=== PATIENT | male | born 1975 | race Caucasian/White ===

== ENCOUNTER → 2021-12-09 10:14 | Outpatient (BNVA) | payer SELFPAY | PROVIDERS: Visit Provider Physician Assistant Medical | DX: Z02.79 Encounter for issue of other medical certificate (principal) ==

== ENCOUNTER 2021-12-15 07:23 | Emergency (ER) | payer BC, SELFPAY ==
--- NOTE | ~2021-12-15 | XR_ITS ---
EXAMINATION: XR ELBOW, LEFT CLINICAL INFORMATION: Pain. Decreased range of motion. COMPARISON: None TECHNIQUE: AP, lateral, and oblique views of the left elbow. FINDINGS: Bone alignment is normal. No fracture or dislocation is seen. Joint spaces are normal. There is an elbow joint effusion. If there is history of trauma, occult fracture should be considered and follow-up x-ray in one week would be recommended. XR/XR elbow LT 2V IMPRESSION: Large elbow joint effusion. If there is history of trauma, occult fracture should be considered and follow-up x-ray in one week would be recommended.
[2021-12-15 07:25] VITALS: BP 147/101; PULSE 92; RESP 16; O2SAT 100; BMI 25.8
--- NOTE | 2021-12-15 07:41 | ECG_ITS ---
Test Reason : chest / arm pain Blood Pressure : / mmHG Vent. Rate : 077 BPM Atrial Rate : 077 BPM P-R Int : 154 ms QRS Dur : 082 ms QT Int : 382 ms P-R-T Axes : 045 -05 027 degrees QTc Int : 432 ms Normal sinus rhythm Normal ECG When compared with ECG of 02-DEC-2014 05:40, No significant change was found Referred By: June Mcmullen Electronically Signed By:RAINA RAHMAN MD
--- NOTE | 2021-12-15 07:43 | ED_ITS ---
HPI - Extremity Problem General Chief complaint: Extremity Injury, Upper <June McmullenYASMINE - Last Filed: 12/15/21 13:47> Stated complaint: chest/arm pain <June Gonzales YASMINE Mcmullen - Last Filed: 12/15/21 13:47> Time Seen by Provider: 12/15/21 07:32 <June Gonzales YASMINE Mcmullen - Last Filed: 12/15/21 13:47> Source: patient <June McmullenYASMINE - Last Filed: 12/15/21 13:47> Mode of arrival: ambulatory <June McmullenYASMINE - Last Filed: 12/15/21 13:47> Limitations: no limitations <June McmullenYASMINE - Last Filed: 12/15/21 13:47> History of Present Illness HPI Narrative: Patient is a 45-year-old male with a history of gout. He presents to the emergency department this morning for evaluation of left arm pain. He said he awoke this morning with severe pain to the left elbow which is made significantly worse with movement. He denies pain to the forearm, pain to the upper arm, or to the shoulder. He reports that his triceps muscle feels like Jell-O . The left arm in general feels heavy. Denies any known precipitating injury, recent trauma or fall, or past injury to the left arm. Denies having done any heavy lifting within the past few days. Denies associated fevers, chills, tingling, weakness of the left arm or hand. Denies any known tick bites. associated chest pain, palpitations, back pain, shoulder pain, shortness of breath, difficulty breathing. Denies family history of cardiovascular disease, or sudden at a young age. He is a cigarette smoker, endorses frequent alcohol consumption; had a couple drinks last night, and denies recreational usage. <Junerhonda Mcmullen CNP - Last Filed: 12/15/21 13:47> MD Complaint: extremity pain <June Ninoadalgisa Mcmullen CNP - Last Filed: 12/15/21 13:47> Onset (ago): hour(s) <Junerhonda Mcmullen CNP - Last Filed: 12/15/21 13:47> Pain Consistency: constant <June Mcmullen CNP - Last Filed: 12/15/21 13:47> Location: left and upper extremity <June Mcmullen CNP Last Filed: 12/15/21 13:47> Severity scale (1-10): 8 <June Mcmullen CNP Last Filed: 12/15/21 13:47> Quality: sharp <June Mcmullen CNP - Last Filed: 12/15/21 13:47> Radiation: none <June Mcmullen [facility] Last Filed: 12/15/21 13:47> Relieving factors: nothing <Juen Mcmullen CNP - Last Filed: 12/15/21 13:47> Exacerbating factors: range of motion <June Mcmullen CNP - Last Filed: 12/15/21 13:47> Associated symptoms: denies other symptoms <June Mcmullen CNP Last Filed: 12/15/21 13:47> Related Data Home medications: Previous Rx's Medication Instructions Recorded prednisone 20 mg tablet See Taper PO DAILY 10 Days #15 tab 12/15/21 <June Mcmullen CNP Last Filed: 12/15/21 13:47> Allergies/Adverse reactions: Allergies Allergy/AdvReac Type Severity Reaction Status Date / Time No Known Allergies Allergy Unverified 08/06/20 16:08 [No Known Allergies*] <June Mcmullen CNP Last Filed: 12/15/21 13:47> Review of Systems Verdana 4l Review of Systems: Verdana 4d Kelliher 4Bd Constitutional: Kelliher 4d No weight loss, fever, chills, weakness or fatigue. Kelliher 4Bd HEENT: Kelliher 4d No visual loss, blurred vision, double vision or yellow sclera. No hearing loss, sneezing, congestion, runny nose or sore throat. ArialArial 4Bd Skin: No rash or itching. Cardiovascular: No chest pain, chest pressure or chest discomfort. No palpitations or pedal edema. Respiratory: No shortness of breath, cough or sputum production. Gastrointestinal: No anorexia, nausea, vomiting or diarrhea. No abdominal pain or blood in stool. Genitourinary: No burning micturition. No urinary frequency or incontinence. Neurologic: No headache, dizziness, syncope, unilateral weakness, ataxia, numbne ss or tingling in the extremities. No change in bowel or bladder control. Musculoskeletal: + left arm pain as noted in HPI. No back pain, joint pain or stiffness. Hematologic: No bleeding or bruising. Lymphatics: No enlarged lymph nodes. Psychiatric: + feels anxious. No depression. Endocrine: No reports of sweating. No polyuria or polydipsia. <June Mcmullen CNP - Last Filed: 12/15/21 13:47> FOR[facility]LY [facility], [facility] Past Medical History Attestation statement: The following information was validated with the patient. <June Mcmullen CNP - Last Filed: 12/15/21 13:47> Source: old records reviewed <June Mcmullen CNP - Last Filed: 12/15/21 13:47> Medical History: Medical History Quadriceps tendon rupture <June Mcmullen CNP - Last Filed: 12/15/21 13:47> Social History Social History: Social History Alcohol intake: current Alcohol intake frequency: 0-2 drinks per day Patient Tobacco Use Status: Current everyday Tobacco user Smoked in Last 30 Days: Yes Use of substances other than those prescribed or required for medical reasons: No Advance Directives: No Advance Directives Information Provided: No <June Mcmullen CNP - Last Filed: 12/15/21 13:47> Physical Exam Verdana 4l Vital Signs: Verdana 4d Verdana 4d Vital Signs: Verdana 4d Verdana 4Bd Last Vital Signs Verdana 4d Airveyor Operator New 4d Airveyor Operator New 4d Temp 97.9 F 12/15/21 07:52 Airveyor Operator New 4d Pulse 93 12/15/21 07:52 Airveyor Operator New 4d Resp 16 12/15/21 08:35 BP 138/98 H 12/15/21 07:52 Pulse Ox 96 12/15/21 07:52 BMI result Body Mass Index 25.8 Vital signs have been reviewed and appeared to be correct. Blood pressure elevated initially 147/101, 136/84 on repeat.? Heart rate normal.? Respiration rate normal. Temperature normal.? Oxygen saturation normal. <June Mcmullen CNP - Last Filed: 12/15/21 13:47> Appearance: Alert.?Oriented to person, place and time. No acute distress.?Normal affect. Eyes: Pupils equal, round and reactive to light.? ENT: Pharynx normal.?? Neck: Normal inspection.? Neck supple.?? CVS: Heart sounds normal. Normal heart rate and rhythm.? Pulses normal.?? Respiratory: No respiratory distress.? Lung sounds clear to auscultation bilaterally?? Abdomen: Soft and non-tender. Normoactive bowel sounds. No pulsatile mass.?? Skin: Skin warm and dry.? Normal skin color.? Normal skin turgor.?? MSK: Full ROM to left shoulder while holding forearm for elbow stability, Full ROM to left wrist. Palpable tenderness to medial elbow. Limited ROM to left elbow due to pain, no erythema, or warmth, localized swelling, concerning for effusion, notable muscle spasming to left forearm add left bicep. Palpable 2+ radial pulse bilaterally. Extremities: No upper or lower extremity edema.? No calf ttp? Neuro: Bilateral upper extremity strangth 5/5, bilateral lower extremity strength 5/5. Moves all extremities spontaneously. Sensation intact bilaterally. No focal neuro deficits. <June Mcmullen CNP - Last Filed: 12/15/21 13:47> Course Course Course Narrative: Patient is a 45-year-old male being evaluated in the emergency department for left arm pain, particularly to the left elbow without known precipitating injury. Will obtain CBC, CMP, magnesium to exclude leukocytosis, electrolyte abnormality, abnormal renal function, abnormal hepatic function. We will obtain troponin, and EKG to evaluate for cardiac abnormalities. Will obtain x-ray of the left elbow to exclude fracture dislocation the low suspicion for this given no precipitating injury. Ordered Tylenol and ibuprofen for pain. Disposition pending results. <June Mcmullen CNP - Last Filed: 12/15/21 13:47> Reevaluation(s) Reevaluation #1: Left elbow x-ray reveals a large joint effusion, Uric acid elevated 9.3 suspect this to be related to acute gout flare. Discussed treatment including rest, hydration, purine restricted diet, glucocorticoid and follow-up with PCP. Troponin normal, EKG normal, no active chest pain or respiratory distress, no concern for acute coronary syndrome. Total bilirubin 1.5, AST 90, ALT 94, in addition to low RBC 4.14 and low platelet count 86. No active bleeding or concerns for spontaneuos/ unexplained bruising, denies blood in urine, bloody or dark stools. Given his abdomen is non-tender, has no complaints of nausea, vomiting, jaundice suspect this may be related to his alcohol consumption for which he should have follow-up outpatient with PCP for trending. Patient to be discharged home, reviewed reasons to return to the emergency department, patient agreeable with plan. <June Mcmullen CNP - Last Filed: 12/15/21 13:47> Time: 09:30 <June Mcmullen CNP - Last Filed: 12/15/21 13:47> MDM - Extremity (Nontraumatic) Medical Records Attestation: I reviewed the patient's medical records. <June Mcmullen CNP - Last Filed: 12/15/21 13:47> Lab Data Attestation: I reviewed the patient's lab results. <June Mcmullen CNP - Last Filed: 12/15/21 13:47> Result diagrams: : 12/15/21 08:43 12/15/21 08:43 <June Mcmullen CNP - Last Filed: 12/15/21 13:47> Labs: Lab Results 12/15/21 12/15/21 12/15/21 Range/Units 08:43 08:43 08:43 WBC 6.4 (4.8-10.8) X10*3/uL RBC 4.14 L (4.60-5.80) X10*6/uL Hgb 15.3 (14.0-18.0) g/dl Hct 42.1 (42.0-52.0) % MCV 101.7 H (80.0-98.0) fL MCH 37.0 H (27.0-33.0) pg MCHC 36.3 H (31.0-36.0) g/dl RDW 13.4 (11.0-16.0) % Plt Count 86 L (160-400) X10*3/uL MPV 8.7 L (9.4-12.4) fL Immature Gran % (Auto) 0.3 (0.0-0.4) % Neut % (Auto) 74.3 H (45-73) % Lymph % (Auto) 15.6 L (20-40) % [place] % (Auto) 9.0 (2-11) % Eos % (Auto) 0.6 (0-4) % Baso % (Auto) 0.2 (0-2) % Lymph # (Auto) 1.0 L (1.2-4.9) X10*3/uL [place] # (Auto) 0.6 (0.1-1.2) X10*3/uL Eos # (Auto) 0.0 (0.0-0.4) X10*3/uL Baso # (Auto) 0.0 (0.0-0.2) X10*3/uL Abs Immat Gran (auto) 0.02 (0.00-0.03) X10*3/uL Absolute Neuts (auto) 4.8 (2.0-8.3) x10*3/uL Absolute Nucleated RBC 0.000 (0.0-0.012) X10*3/uL Nucleated RBC % (auto) 0.0 (0.0-0.2) /100WBC ESR (0-15) MM/HR Sodium 140 (135-145) mmol/L Potassium 4.5 (3.3-5.1) mmol/L Chloride 105 (96-108) mmol/L Carbon Dioxide 25 (22-29) mmol/L Anion Gap 15 (12-20) BUN 7 L (9-16) mg/dL Creatinine 0.95 (0.5-1.4) mg/dL Estim Creat Clear Calc 103.5 Estimated GFR > 60 Random Glucose 93 (60-115) mg/dL Uric Acid 9.3 H (3.4-7.0) mg/dL Calcium 9.2 (8.4-10.2) mg/dL Magnesium 1.7 (1.6-2.6) mg/dL Total Bilirubin 1.5 H (0.0-1.0) mg/dL AST 90 H (5-37) U/L ALT 94 H (0-40) U/L Alkaline Phosphatase 72 (39-117) U/L Troponin I High Sens < 3.5 (<3.5-35.0) ng/L C-Reactive Protein 0.16 (< or = 0.50) mg/dL Total Protein 6.6 (6.5-8.0) g/dL Albumin 3.8 (3.5-5.0) g/dL 12/15/21 Range/Units 08:43 WBC (4.8-10.8) X10*3/uL RBC (4.60-5.80) X10*6/uL Hgb (14.0-18.0) g/dl Hct (42.0-52.0) % MCV (80.0-98.0) fL MCH (27.0-33.0) pg MCHC (31.0-36.0) g/dl RDW (11.0-16.0) % Plt Count (160-400) X10*3/uL MPV (9.4-12.4) fL Immature Gran % (Auto) (0.0-0.4) % Neut % (Auto) (45-73) % Lymph % (Auto) (20-40) % [place]ap[place] % (Auto) (2-11) % Eos % (Auto) (0-4) % Baso % (Auto) (0-2) % Lymph # (Auto) (1.2-4.9) X10*3/uL [place] # (Auto) (0.1-1.2) X10*3/uL Eos # (Auto) (0.0-0.4) X10*3/uL Baso # (Auto) (0.0-0.2) X10*3/uL Abs Immat Gran (auto) (0.00-0.03) X10*3/uL Absolute Neuts (auto) (2.0-8.3) x10*3/uL Absolute Nucleated RBC (0.0-0.012) X10*3/uL Nucleated RBC % (auto) (0.0-0.2) /100WBC ESR 4 (0-15) MM/HR Sodium (135-145) mmol/L Potassium (3.3-5.1) mmol/L Chloride (96-108) mmol/L Carbon Dioxide (22-29) mmol/L Anion Gap (12-20) BUN (9-16) mg/dL Creatinine (0.5-1.4) mg/dL Estim Creat Clear Calc Estimated GFR Random Glucose (60-115) mg/dL Uric Acid (3.4-7.0) mg/dL Calcium (8.4-10.2) mg/dL Magnesium (1.6-2.6) mg/dL Total Bilirubin (0.0-1.0) mg/dL AST (5-37) U/L ALT (0-40) U/L Alkaline Phosphatase (39-117) U/L Troponin I High Sens (<3.5-35.0) ng/L C-Reactive Protein (< or = 0.50) mg/dL Total Protein (6.5-8.0) g/dL Albumin (3.5-5.0) g/dL <June Mcmullen CNP - Last Filed: 12/15/21 13:47> Imaging Data left elbow XR: Attestation: I personally reviewed and interpreted this imaging study as follows: <June Mcmullen CNP - Last Filed: 12/15/21 13:47> Radiologist's impression: IMPRESSION: Large elbow joint effusion. If there is history of trauma, occult fracture should be considered and follow-up x-ray in one week would be recommended. <June Mcmullen CNP - Last Filed: 12/15/21 13:47> ECG Data Attestation EKG: I personally reviewed and interpreted this ECG as follows: <June Mcmullen CNP - Last Filed: 12/15/21 13:47> ECG interpretation date: 12/15/21 <June Mcmullen CNP - Last Filed: 12/15/21 13:47> ECG interpretation time: 08:47 <June Mcmullen CNP - Last Filed: 12/15/21 13:47> Prior ECG tracings: available for review <June Mcmullen CNP - Last Filed: 12/15/21 13:47> Interpretation: Rate: 77 Rhythm:? Normal sinus rhythm [place]:? Normal Normal P waves.? Normal ROHIT.?? Normal QRS complex.?? ST T wave :??No ST elevation, or T inversion qTC: 432 prior studies:?Nov 2014 The study has been interpreted contemporaneously by me. <June Mcmullen CNP - Last Filed: 12/15/21 13:47> Discharge Plan Discharge Clinical Impression: Effusion of elbow joint, left, Gout attack <June Mcmullen CNP - Last Filed: 12/15/21 13:47> Patient Disposition: Home, Self-Care <June Mcmullen CNP - Last Filed: 12/15/21 13:47> Instructions: Low Purine Diet (ED), Gout (ED) <June Mcmullen CNP - Last Filed: 12/15/21 13:47> Additional Instructions: You were evaluated in the emergency department for pain to your left elbow, your uric acid levels were elevated and your x-ray shows that there is an effusion in the joint. This is most consistent with gout flare up. Please take prednisone as prescribed, take medication with food to prevent stomach upset. Be sure to stay well hydrated avoid any excess red meat intake, seafood, and you should avoid alcohol including beer, and distilled liquor. In addition, your liver enzymes were mildly elevated, this may be in relation to alcohol consumption, should she developed abdominal pain, nausea, vomiting, yellowing of the skin or eyes you should be re-evaluated. Your platelet count and monique blood cell counts were also low. Please call to arrainge a new PCP for further follow- up on your labs. Please feel free to return to the emergency department for any new or worsening symptoms or concerns <June Mcmullen CNP - Last Filed: 12/15/21 13:47> Prescriptions: New prednisone 20 mg tablet See Taper mg PO DAILY 10 Days Qty: 15 0RF Taper: Prednisone 40 mg daily for 5 Days and 0 Hour 20 mg daily for 5 Days and 0 Hour <June Mcmullen CNP - Last Filed: 12/15/21 13:47> Interventions: ED Discharge Assessment Last Done: 12/15/21 10:07 <June Mcmullen CNP - Last Filed: 12/15/21 13:47> Discharge Date/Time: 12/15/21 10:07 <June Mcmullen, QUALITY ENG - Last Filed: 12/15/21 13:47>
[2021-12-15] MEDS: Acetaminophen 325 MG TABLET 975 MG PO (07:51)
[2021-12-15 07:52] VITALS: BP 138/98; PULSE 93; RESP 18; TEMP 36.6; O2SAT 96
[2021-12-15] MEDS: Ibuprofen 600 MG TABLET PO (07:52)
[2021-12-15 08:35] VITALS: RESP 16
[2021-12-15 08:47] LABS: MANUAL DIFF FLAG NO
[2021-12-15 08:48] LABS: Basophils Percent Auto 0.2 % (0-2); Eosinophils Percent Auto 0.6 % (0-4); Hematocrit 42.1 % (42.0-52.0); Hemoglobin 15.3 g/dl (14.0-18.0); Imm Gran Abs Auto 0.02 X10*3/uL (0.00-0.03); Imm Gran Pct Auto 0.3 % (0.0-0.4); Lymphocytes Percent Auto 15.6 % (20-40); Mean Corpuscular HGB Conc 36.3 g/dl (31.0-36.0); Mean Corpuscular Volume 101.7 fL (80.0-98.0); Monocytes Absolute Auto 0.6 X10*3/uL (0.1-1.2); Neutrophils Absolute Auto 4.8 x10*3/uL (2.0-8.3); Neutrophils Percent Auto 74.3 % (45-73); Red Blood Count 4.14 X10*6/uL (4.60-5.80); Red Cell Distribution Width 13.4 % (11.0-16.0); White Blood Count 6.4 X10*3/uL (4.8-10.8)
[2021-12-15 09:05] LABS: Alanine Aminotransferase 94 U/L (0-40); Albumin Level 3.8 g/dL (3.5-5.0); Alkaline Phosphatase 72 U/L (39-117); Anion Gap 15 (12-20); Aspartate Amino Transferase 90 U/L (5-37); Bilirubin Total 1.5 mg/dL (0.0-1.0); Blood Urea Nitrogen 7 mg/dL (9-16); C Reactive Protein 0.16 mg/dL (< or = 0.50); Calcium 9.2 mg/dL (8.4-10.2); Carbon Dioxide 25 mmol/L (22-29); Chloride 105 mmol/L (96-108); Creatinine Clr Calc Pharmacy 103.5; Estimated Glomerular Filt Rate > 60; Glucose Random 93 mg/dL (60-115); Magnesium 1.7 mg/dL (1.6-2.6); Potassium 4.5 mmol/L (3.3-5.1); Sodium 140 mmol/L (135-145); Total Protein 6.6 g/dL (6.5-8.0); Uric Acid 9.3 mg/dL (3.4-7.0)
[2021-12-15 09:07] LABS: Mean Platelet Volume 8.7 fL (9.4-12.4); Platelet Count 86 X10*3/uL (160-400)
[2021-12-15 09:11] LABS: Troponin-I High Sensitivity < 3.5 ng/L (<3.5-35.0)
[2021-12-15 09:34] LABS: Erythrocyte Sedimentation Rate 4 MM/HR (0-15)
== END 2021-12-15 10:07 | disposition home or self-care (01) ==
PROVIDERS: Nurse Practitioner Family; Emergency Provider Emergency Medicine; PCP Nurse Practitioner Family
DX: M25.422 Effusion, left elbow (principal); M10.9 Gout, unspecified; M79.602 Pain in left arm; F17.200 Nicotine dependence, unspecified, uncomplicated
CPT/HCPCS: 36415; 73070; 80053; 83735; 84484; 84550; 85025; 85652; 86140; 93005; 99283; 99284

== ENCOUNTER 2022-02-10 08:41 | Outpatient (REF) | payer BC, SELFPAY ==
[2022-02-10 09:08] LABS: MANUAL DIFF FLAG NO
[2022-02-10 10:01] LABS: Basophils Percent Auto 0.1 % (0-2); Eosinophils Percent Auto 0.4 % (0-4); Hematocrit 43.5 % (42.0-52.0); Hemoglobin 14.9 g/dl (14.0-18.0); Imm Gran Abs Auto 0.04 X10*3/uL (0.00-0.03); Imm Gran Pct Auto 0.5 % (0.0-0.4); Lymphocytes Absolute Auto 1.2 X10*3/uL (1.2-4.9); Lymphocytes Percent Auto 15.7 % (20-40); Mean Corpuscular HGB Conc 34.3 g/dl (31.0-36.0); Mean Corpuscular Hemoglobin 34.9 pg (27.0-33.0); Mean Corpuscular Volume 101.9 fL (80.0-98.0); Mean Platelet Volume 10.1 fL (9.4-12.4); Monocytes Absolute Auto 0.6 X10*3/uL (0.1-1.2); Neutrophils Absolute Auto 5.7 x10*3/uL (2.0-8.3); Neutrophils Percent Auto 75.3 % (45-73); Platelet Count 147 X10*3/uL (160-400); Red Blood Count 4.27 X10*6/uL (4.60-5.80); Red Cell Distribution Width 12.2 % (11.0-16.0); White Blood Count 7.5 X10*3/uL (4.8-10.8)
[2022-02-10 10:37] LABS: Alanine Aminotransferase 29 U/L (0-40); Albumin Level 4.6 g/dL (3.5-5.0); Alkaline Phosphatase 49 U/L (39-117); Anion Gap 15 (12-20); Aspartate Amino Transferase 17 U/L (5-37); Bilirubin Total 0.7 mg/dL (0.0-1.0); Blood Urea Nitrogen 22 mg/dL (9-16); Calcium 10.3 mg/dL (8.4-10.2); Carbon Dioxide 25 mmol/L (22-29); Chloride 105 mmol/L (96-108); Cholesterol 184 mg/dL; Estimated Glomerular Filt Rate > 60; Glucose Fasting 101 mg/dL (60-99); HDL Cholesterol 32 mg/dL; LDL Cholesterol Calculated 131 mg/dl; Potassium 4.9 mmol/L (3.3-5.1); Sodium 140 mmol/L (135-145); Total Protein 7.4 g/dL (6.5-8.0); Triglycerides 108 mg/dL
[2022-02-10 10:44] LABS: Estimated Average Glucose 91 mg/dL; Hemoglobin A1c % 4.8 %
[2022-02-10 11:05] LABS: Folate 9.5 ng/mL (> or = 4.0); Vitamin B12 232 pg/mL (200-900)
[2022-02-16 13:16] LABS: Vitamin D 25-OH, D2 <4 ng/mL; Vitamin D 25-OH, D3 21 ng/mL; Vitamin D 25-OH, Total 21 ng/mL (30-100)
== END 2022-02-10 08:42 | disposition home or self-care (01) ==
LOC: HO.LAB 08:41
PROVIDERS: PCP Nurse Practitioner Acute Care; Visit Provider Nurse Practitioner Acute Care
DX: I10 Essential (primary) hypertension (principal)
CPT/HCPCS: 36415; 80053; 80061; 82306; 82607; 82746; 83036; 84443; 85025

== ENCOUNTER 2022-05-09 08:20 | Emergency (ER) | payer BC, SELFPAY ==
--- NOTE | ~2022-05-09 | CT_ITS ---
EXAMINATION: CT ABDOMEN AND PELVIS WITHOUT CONTRAST CLINICAL INFORMATION: Right pelvic pain COMPARISON: None TECHNIQUE: Multidetector volumetric imaging was performed from the superior aspect of the liver through the pubic symphysis. Sagittal and coronal reformatted images were obtained on the technologist's workstation. This CT examination was performed using dose optimization techniques as appropriate, variously including the following: *Automated exposure control *Adjustment of mA and/or kV according to patient size (this includes techniques or standardized protocols for targeted exams where dose is matched to indication/reason for exam; i.e. extremities or head) *Use of iterative reconstruction technique DLP: 594 mGy-cm FINDINGS: LUNG BASES: The visualized lung bases are unremarkable. LIVER, GALLBLADDER, AND BILIARY TREE: The liver is normal in size, shape, and attenuation. No focal hepatic lesion or biliary ductal dilatation is present. The gallbladder is unremarkable with no evidence of radiopaque gallstones, gallbladder wall thickening, or obvious pericholecystic inflammatory changes. PANCREAS: Unremarkable. SPLEEN: The spleen is enlarged measuring 15.8 cm in craniocaudal dimension. ADRENAL GLANDS: Unremarkable. KIDNEYS AND URETERS: The kidneys are normal in size, shape, and attenuation. No hydronephrosis, hydroureter, or calculi seen. No perinephric stranding. BLADDER: The partially distended urinary bladder is unremarkable. GASTROINTESTINAL TRACT: No bowel obstruction. Normal appendix. A few scattered colonic diverticuli without diverticulitis. ABDOMINAL WALL: No significant hernia is appreciated. LYMPH NODES: No lymphadenopathy. VASCULAR: Minimal calcified plaque in the abdominal aorta. PELVIC VISCERA: The prostate and seminal vesicles are unremarkable. OSSEOUS STRUCTURES: There is chronic AVN of the right hip with areas of mild subchondral collapse. There is secondary osteoarthritis in the right hip. Left hip is normal.. Minimal retrolisthesis of L5 on S1. Mild degenerative disc disease at L5-S1. Mild spondylitic changes in the visualized spine. CT/CT abdomen pelvis wo con IMPRESSION: 1. There is chronic AVN of the right hip with areas of subchondral collapse. There is secondary osteoarthritis in the right hip. 2. Splenomegaly. 3. A few scattered colonic diverticuli without diverticulitis. 4. Minimal retrolisthesis of L5 on S1. Degenerative disc disease at L5-S1. Fleischner guidelines were followed.
--- NOTE | ~2022-05-09 | XR_ITS ---
EXAMINATION: XR HIP, RIGHT CLINICAL INFORMATION: Right hip pain for months. COMPARISON: CT scan of the abdomen and pelvis performed today TECHNIQUE: Two views of the right hip. FINDINGS: Mild deformity, sclerotic changes and subcortical cystic changes are seen medially in the right femoral head. Mild right acetabular periarticular sclerotic changes are seen. The left hip shows minimal degenerative changes superiorly. The bony pelvis is intact. The soft tissues are unremarkable. XR/XR hip RT w PEL1V IMPRESSION: Asymmetric right femoral head findings suggestive of avascular necrosis and associated degenerative changes. Minimal left hip degenerative joint changes are seen without evidence for avascular necrosis.
[2022-05-09 08:23] VITALS: BP 167/112; PULSE 123; RESP 18; TEMP 36.1; O2SAT 97; BMI 26.5
--- NOTE | 2022-05-09 08:33 | ED_ITS ---
HPI - Male Genitourinary General Chief complaint: General Medical Stated complaint: groin issues Time Seen by Provider: 05/09/22 08:26 Source: patient Mode of arrival: ambulatory Limitations: no limitations History of Present Illness HPI Narrative: 46-year-old male presents with 2 months of right-sided groin pain. Patient states he has more pain when he lifts or stands or walks. States the pain shoots into his hip and is intermittent. Patient started drinking again 2 weeks ago after being sober for 4 months and completing a rehab program. Patient had 1 episode of vomiting 5 days ago. Patient endorses anxiety, and states that he does not eat due to anxiety. States his last drink was last night, he drinks 2- 6 drinks a day of vodka. Patient states he has had orange urine that started last week, no dysuria, no vomiting or diarrhea, no abdominal pain, no abdominal surgeries. No chest pain, no shortness of breath. Patient does have a PCP and an appointment in June. Related Data Previous Rx's Medication Instructions Recorded clonidine HCl 0.1 mg tablet 0.1 mg PO BID #56 tabs 01/25/22 hydroxyzine HCl 50 mg tablet 50 mg PO TID PRN itching #84 tabs 01/25/22 cholecalciferol (vitamin D3) 50 50 mcg PO DAILY #30 caps 02/16/22 mcg (2,000 unit) capsule colchicine 0.6 mg tablet 0.6 mg PO DAILY PRN gout #30 tabs 03/09/22 prednisone 20 mg tablet See Taper PO DAILY 10 days #15 tabs 03/16/22 cephalexin 500 mg capsule 500 mg PO QID 7 days #28 caps 05/09/22 Allergies Allergy/AdvReac Type Severity Reaction Status Date / Time No Known Allergies Allergy Verified 03/22/22 15:03 [No Known Allergies*] Review of Systems Constitutional: Constitutional: Denies body ache(s), Denies chills, Denies fatigue, Denies fever(s), Denies headache(s), Denies malaise and Denies weakness Eyes: Eyes: Denies diplopia ENT: Denies vertigo, Denies dizziness, Denies otalgia, Denies headache(s), Denies mouth pain, Denies post nasal drip, Denies sinus pain, Denies sinus pressure, Denies sore throat and Denies throat swelling Cardiovascular: Cardiovascular: Denies chest pain, Denies syncope, Denies leg edema, Denies lightheadedness, Denies Loss of Consciousness, Denies palpitations and Denies dyspnea Respiratory: Respiratory: Denies chest congestion, Denies cough and Denies dyspnea Gastrointestinal: Gastrointestinal: Reports abdominal pain, Denies h ematochezia, Denies coffee ground emesis, Denies constipation, Denies diarrhea, Denies nausea, Reports vomiting and Denies hematemesis Genitourinary: Genitourinary: Denies hematuria, Denies dysuria, Denies flank pain, Denies painful ejaculations, Denies penile discharge, Denies scrotal swelling, Denies testicular mass, Denies testicular pain, Denies urinary frequency and Denies urinary incontinence Musculoskeletal: Musculoskeletal: Reports arthralgias (right hip) Neurologic: Denies confusion, Denies vertigo, Denies dizziness, Denies syncope, Denies headache(s) and Denies weakness Psychiatric: Psychiatric: Reports anxiety, Denies confusion and Denies depression Endocrine: Endocrine: Denies fatigue and Denies palpitations Allergic/Immunologic: Allergic/Immunologic: Denies throat swelling PMFSH Past Medical History Medical History Anxiety Encounter to establish care Gout Nicotine dependence Quadriceps tendon rupture Surgical History History of left knee surgery Family History Family History Other Substance use disorder Social History Social History Housing: House Alcohol intake: current Alcohol intake frequency: 3 or more drinks per day Alcohol type: hard liquor Patient Tobacco Use Status: Former Tobacco user e-Cigarette/Vaping Use: Never Used Second Hand Smoke Exposure: Yes Use of substances other than those prescribed or required for medical reasons: No Advance Directives: No Advance Directives Information Provided: No service: No Current occupational status: employed 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 Current occupational exposures/hazards: No Cognitive needs: No Hearing needs: No Vision needs: No Physical Exam Vital Signs: Vital Signs: Last Vital Signs Temp 98.7 F 05/09/22 10:35 Pulse 92 05/09/22 10:35 Resp 14 05/09/22 10:35 BP 131/90 H 05/09/22 10:35 Pulse Ox 98 05/09/22 10:35 O2 Del Method 05/09/22 10:35 BMI result Body Mass Index 26.5 Const: General: No confusion Nutritional Appearance: well nourished Orientation/consciousness: No confusion Limitations: no limitations HEENT: Head: Yes normal to inspection, Yes normocephalic and Yes atraumatic Ears: hearing grossly normal bilaterally, external ears normal, TM's normal bilaterally and EAC's normal General nose exam: Normal external nose present Face and sinus: Yes normal facial exam and Yes sinuses nontender Mouth: Normal oral and palatal mucosa present Throat: Yes posterior oropharynx normal Eyes: Conjunctivae: conjunctivae normal Pupils: Equal, round and reactive pupils present EOM: EOMs intact bilaterally Neck: Neck: Yes full ROM, Yes no lymphadenopathy and Yes supple Resp: Effort & Inspection: normal respiratory effort and able to speak in complete sentences Auscultation: clear to auscultation bilaterally, no crackles, no rales, no rhonchi and no wheezes Cardio: Rate: regular rate Rhythm: regular rhythm Heart sounds: S1 normal heart sound present and S2 normal heart sound present GI: Inspection: Yes normal to inspection Palpation (GI): Soft to palpation, nontender, no guarding and not rigid Percussion: Yes normal to percussion Auscultation: normal bowel sounds Skin: General skin exam: no rashes or lesions noted Neuro: General: No confusion Cranial nerves: Yes Equal, round and reactive pupils present Extrem: Right lower extremity: normal to inspection, full ROM, normal capillary refill, no joint enlargement and hip/thigh Details: normal to inspection and normal ROM; no tenderness, no swelling, no ecchymosis, no crepitus, no deformity and no unusual warmth; no cyanosis and no edema Psych: Appearance: grossly normal Affect: normal affect and Anxious affect present Attitude: cooperative Thought process: Normal thought process present Course Course Course Narrative: 46-year-old male with a past medical history of thrombocytopenia, alcohol use disorder, and gout, presents for right-sided groin pain for the last 2 months. On exam, patient has no tenderness in his right inguinal area, some mild swelling there. Patient has full range of motion of his right lower extremity, intact pulses, sensation, DTRs, motor strength. patient has low platelet count, 63 today, patient had platelets of 147 in January 2022. History of thrombocytopenia, patient has not been followed up by a provider for this issue for quite some time. [place] texted wit Dr Ordaz, she will f/u with pt as outpatient. Patient has elevated liver function tests, most likely due to drinking, will have patient follow-up with PCP Patient has UTI, will prescribe cephalexin, will refer to Urology patient also has avascular necrosis of right hip with areas of subchondral collapse, [place] text with Dr. Phan, who will see patient as outpatient for follow-up. CT/CT abdomen pelvis wo con IMPRESSION: ? 1. There is chronic AVN of the right hip with areas of subchondral collapse. There is secondary osteoarthritis in the right hip. 2. Splenomegaly. 3. A few scattered colonic diverticuli without diverticulitis. 4. Minimal retrolisthesis of L5 on S1. Degenerative disc disease at L5-S1.? MDM - Male Genitourinary Lab Data Result diagrams: 05/09/22 10:04 05/09/22 10:04 Labs: Lab Results 05/09/22 05/09/22 05/09/22 Range/Units 10:04 10:04 10:43 WBC 6.2 (4.8-10.8) X10*3/uL RBC 4.60 (4.60-5.80) X10*6/uL Hgb 15.5 (14.0-18.0) g/dl Hct 41.6 L (42.0-52.0) % MCV 90.4 (80.0-98.0) fL MCH 33.7 H (27.0-33.0) pg MCHC 37.3 H (31.0-36.0) g/dl RDW 15.7 (11.0-16.0) % Plt Count 63 L D (160-400) X10*3/uL MPV 9.8 (9.4-12.4) fL Immature Gran % (Auto) 0.5 H (0.0-0.4) % Neut % (Auto) 76.8 H (45-73) % Lymph % (Auto) 14.2 L (20-40) % [place] % (Auto) 7.8 (2-11) % Eos % (Auto) 0.5 (0-4) % Baso % (Auto) 0.2 (0-2) % Lymph # (Auto) 0.9 L (1.2-4.9) X10*3/uL [place] # (Auto) 0.5 (0.1-1.2) X10*3/uL Eos # (Auto) 0.0 (0.0-0.4) X10*3/uL Baso # (Auto) 0.0 (0.0-0.2) X10*3/uL Abs Immat Gran (auto) 0.03 (0.00-0.03) X10*3/uL Absolute Neuts (auto) 4.8 (2.0-8.3) x10*3/uL Absolute Nucleated RBC 0.000 (0.0-0.012) X10*3/uL Nucleated RBC % (auto) 0.0 (0.0-0.2) /100WBC Sodium 136 (135-145) mmol/L Potassium 3.6 D (3.3-5.1) mmol/L Chloride 94 L (96-108) mmol/L Carbon Dioxide 32 H (22-29) mmol/L Anion Gap 14 (12-20) BUN 7 L D (9-16) mg/dL Creatinine 0.94 (0.5-1.4) mg/dL Estim Creat Clear Calc 103.5 Estimated GFR > 60 Random Glucose 116 H (60-115) mg/dL Calcium 9.7 (8.4-10.2) mg/dL Total Bilirubin 1.6 H (0.0-1.0) mg/dL AST 60 H (5-37) U/L ALT 60 H (0-40) U/L Alkaline Phosphatase 56 (39-117) U/L Total Protein 7.3 (6.5-8.0) g/dL Albumin 4.5 (3.5-5.0) g/dL Lipase 49 (8-78) U/L Urine Color DK YELLOW Urine Appearance CLOUDY Urine pH 5.5 (5.0-8.0) Ur Specific [place] >= 1.030 H (1.005-1.025) Urine Protein 2+ H (NEG-TRACE) MG/DL Urine Glucose (UA) 100 H (NEG) MG/DL Urine Ketones 5 (NEG) MG/DL Urine Blood TRACE (NEG) Urine Nitrite POS H (NEG) Ur Leukocyte Esterase TRACE H (NEG) Urine RBC 1-4 (0) /HPF Urine WBC 10-14 H (0-4) /HPF Ur Squamous Epith Cells TRACE /LPF Urine Bacteria 1+ /LPF Urine Mucus 2+ /LPF Discharge Plan Discharge Clinical Impression: Avascular necrosis of bone of right hip, Thrombocytopenia, Acute UTI, Elevated liver function tests Patient Disposition: Home, Self-Care Instructions: Urinary Tract Infection in Men (ED), Thrombocytopenia (ED) Additional Instructions: You have avascular necrosis of your right hip. You must call Orthopedics at the following number if you do not hear from them by midday tomorrow you have a low platelet count, I have referred you to a carry all driver, please call her at the following number if you do not hear from her by midday tomorrow [phone] you have a urinary tract infection, I have prescribed antibiotic to your pharmacy, you must also call Urology at the following number few do not hear from them at midday tomorrow [phone] in addition, please call your primary care provider for follow-up appointment from today's emergency room visit, and for re-evaluation of your elevated liver function labs. Please return to emergency room if you have any new or concerning symptoms, including fever, vomiting, chest pain, shortness breath Prescriptions: New cephalexin 500 mg capsule 500 mg PO QID 7 Days Qty: 28 0RF No Action cholecalciferol (vitamin D3) 50 mcg (2,000 unit) capsule 50 mcg PO DAILY Qty: 30 2RF colchicine 0.6 mg tablet 0.6 mg PO DAILY PRN (Reason: gout) Qty: 30 0RF prednisone 20 mg tablet See Taper PO DAILY 10 Days Qty: 15 0RF Taper: Prednisone 40 mg daily for 5 Days and 0 Hour 20 mg daily for 5 Days and 0 Hour hydroxyzine HCl 50 mg tablet 50 mg PO TID PRN (Reason: itching) Qty: 84 2RF clonidine HCl 0.1 mg tablet 0.1 mg PO BID Qty: 56 1RF Rx Instructions: Hold if SBP <100 Referrals: Andreas Monteiro MD [Physician] - Yu Ordaz MD [Physician] - (platelets 63) Ye Phan MD [Physician] - (AVN right hip )
[2022-05-09 08:36] VITALS: BP 159/111; PULSE 100; RESP 18; TEMP 37; O2SAT 96
--- NOTE | 2022-05-09 08:45 | PC.NURSE ---
pt does not take BP medications, he was prescribed 10 yrs ago but does not take anything for his BP. He does drink daily.
--- NOTE | 2022-05-09 08:49 | PC.NURSE ---
right groin pain for 2 months off and on.
[2022-05-09] MEDS: Ondansetron ODT 4 MG TAB.RAPDIS TRANSLINGU (09:19)
[2022-05-09] MEDS: LORazepam 1 MG TABLET PO (09:19)
[2022-05-09 10:09] LABS: MANUAL DIFF FLAG NO
[2022-05-09 10:12] LABS: Basophils Percent Auto 0.2 % (0-2); Eosinophils Percent Auto 0.5 % (0-4); Hematocrit 41.6 % (42.0-52.0); Hemoglobin 15.5 g/dl (14.0-18.0); Imm Gran Abs Auto 0.03 X10*3/uL (0.00-0.03); Imm Gran Pct Auto 0.5 % (0.0-0.4); Lymphocytes Absolute Auto 0.9 X10*3/uL (1.2-4.9); Lymphocytes Percent Auto 14.2 % (20-40); Mean Corpuscular HGB Conc 37.3 g/dl (31.0-36.0); Mean Corpuscular Hemoglobin 33.7 pg (27.0-33.0); Mean Corpuscular Volume 90.4 fL (80.0-98.0); Mean Platelet Volume 9.8 fL (9.4-12.4); Monocytes Absolute Auto 0.5 X10*3/uL (0.1-1.2); Monocytes Percent Auto 7.8 % (2-11); Neutrophils Absolute Auto 4.8 x10*3/uL (2.0-8.3); Neutrophils Percent Auto 76.8 % (45-73); Platelet Count 63 X10*3/uL (160-400); Red Cell Distribution Width 15.7 % (11.0-16.0); White Blood Count 6.2 X10*3/uL (4.8-10.8)
[2022-05-09 10:26] LABS: Alanine Aminotransferase 60 U/L (0-40); Albumin Level 4.5 g/dL (3.5-5.0); Alkaline Phosphatase 56 U/L (39-117); Anion Gap 14 (12-20); Aspartate Amino Transferase 60 U/L (5-37); Bilirubin Total 1.6 mg/dL (0.0-1.0); Blood Urea Nitrogen 7 mg/dL (9-16); Calcium 9.7 mg/dL (8.4-10.2); Carbon Dioxide 32 mmol/L (22-29); Chloride 94 mmol/L (96-108); Creatinine Clr Calc Pharmacy 103.5; Estimated Glomerular Filt Rate > 60; Glucose Random 116 mg/dL (60-115); Lipase 49 U/L (8-78); Potassium 3.6 mmol/L (3.3-5.1); Sodium 136 mmol/L (135-145); Total Protein 7.3 g/dL (6.5-8.0)
[2022-05-09 10:35] VITALS: BP 131/90; PULSE 92; RESP 14; TEMP 37.1; O2SAT 98
[2022-05-09 10:50] LABS: Appearance Urine CLOUDY; Color Urine DK YELLOW; Glucose Urine UA 100 MG/DL (NEG); Leukocyte Esterase Urine TRACE (NEG); Nitrite Urine POS (NEG); PH 5.5 (5.0-8.0); Specific Gravity - Urine >= 1.030 (1.005-1.025); UACC Culture Trigger YES; Urine Blood TRACE (NEG); Urine Ketones 5 MG/DL (NEG); Urine Protein 2+ MG/DL (NEG-TRACE)
[2022-05-09 10:58] LABS: Bacteria Urine 1+ /LPF; Mucus Urine 2+ /LPF; Squamous Epithelial Cell Urine TRACE /LPF
--- NOTE | 2022-05-09 13:27 | MHC.RECOVRN ---
This lead technical writer met w/ pt, upon entering room pt alert and oriented. Pt states started drinking heavily about one year ago due to divorce, drinks 6 twisted teas daily and 3 nips. Pt states about 3 months ago, went to detox at [facility] for 13 days. Pt states since d/c at [facility] has quit smoking. Pt states moved into new place and found Vodka bottle while cleaning, pt states reoccurrence for past few weeks. Pt states withdrawal symptoms in the past have been extreme anxiety and vomitting with stomach pain. Pt states unsure about detox at this time, [facility], but being in groups makes pt extremely anxious. Pt states not feeling any withdrawal at this time, is interested in persuing health concerns currently related to groin/hip pain and GI discomfort. This lead technical writer gave pt resource packet.
== END 2022-05-09 12:26 | disposition home or self-care (01) ==
PROVIDERS: Physician Assistant; Emergency Provider Emergency Medicine; PCP Nurse Practitioner Acute Care
DX: M25.551 Pain in right hip (principal); R10.9 Unspecified abdominal pain; R79.89 Other specified abnormal findings of blood chemistry; M87.3 Other secondary osteonecrosis; D69.6 Thrombocytopenia, unspecified; N39.0 Urinary tract infection, site not specified; Z79.899 Other long term (current) drug therapy
CPT/HCPCS: 36415; 73502; 74176; 80053; 81001; 83690; 85025; 87086; 99284

== ENCOUNTER 2022-07-04 08:40 | Outpatient (REF) | payer OTHER, SELFPAY ==
--- NOTE | ~2022-07-04 | XR_ITS ---
EXAMINATION: XR PELVIS CLINICAL INFORMATION: Pain in hip. COMPARISON: Right hip 05/09/2022 TECHNIQUE: AP view of the pelvis. FINDINGS: There is mild loss of right hip joint space with curvilinear bony erosive changes superior lateral right femoral head without loose bodies or periarticular spurring. The left hip joint space is unremarkable. The SI joints are symmetric and normal. The soft tissues are normal. XR/XR pelvis 1-2V IMPRESSION: There could've a linear erosive changes superolateral right femoral head suspicious for avascular necrosis of right femur. Recommend MRI of the right hip.
== END 2022-07-04 08:41 | disposition home or self-care (01) ==
LOC: HO.HOSX 08:40
PROVIDERS: Visit Provider Orthopaedic Surgery
DX: M25.551 Pain in right hip (principal); M25.552 Pain in left hip
CPT/HCPCS: 72170

== ENCOUNTER 2022-09-06 07:34 | Inpatient (IN) | payer OTHER, SELFPAY ==
--- NOTE | 2022-08-17 14:10 | ECG_ITS ---
Test Reason : preop Blood Pressure : / mmHG Vent. Rate : 071 BPM Atrial Rate : 071 BPM P-R Int : 152 ms QRS Dur : 088 ms QT Int : 392 ms P-R-T Axes : 056 002 048 degrees QTc Int : 425 ms Normal sinus rhythm Low voltage QRS Borderline ECG When compared with ECG of 15-DEC-2021 08:27, No significant change was found Referred By: Rika Mejias Electronically Signed By:TERRY MARY
[2022-08-17 15:12] LABS: Hemoglobin 16.3 g/dl (14.0-18.0); PLT CLUMP 1; SCAN SMEAR FLAG 1
[2022-08-17 15:14] LABS: Basophils Percent Auto 0.3 % (0-2); Eosinophils Absolute Auto 0.1 X10*3/uL (0.0-0.4); Eosinophils Percent Auto 1.2 % (0-4); Hematocrit 46.6 % (42.0-52.0); Imm Gran Abs Auto 0.04 X10*3/uL (0.00-0.03); Imm Gran Pct Auto 0.5 % (0.0-0.4); Lymphocytes Percent Auto 25.3 % (20-40); MANUAL DIFF FLAG SCAN; Mean Corpuscular Hemoglobin 32.4 pg (27.0-33.0); Mean Corpuscular Volume 92.6 fL (80.0-98.0); Mean Platelet Volume 10.2 fL (9.4-12.4); Monocytes Absolute Auto 0.6 X10*3/uL (0.1-1.2); Monocytes Percent Auto 7.6 % (2-11); Neutrophils Percent Auto 65.1 % (45-73); Red Blood Count 5.03 X10*6/uL (4.60-5.80); Red Cell Distribution Width 13.6 % (11.0-16.0)
[2022-08-17 15:21] LABS: INTERNATIONAL NORM RATIO 0.9 (0.9-1.1); Prothrombin Time 10.5 SEC (10.0-13.1)
[2022-08-17 15:31] LABS: Platelet Count 116 X10*3/uL (160-400); White Blood Count 7.7 X10*3/uL (4.8-10.8)
[2022-08-17 15:32] LABS: SLIDE REVIEW VERIFIED
[2022-08-17 15:47] LABS: Anion Gap 18 (12-20); Blood Urea Nitrogen 8 mg/dL (9-16); Calcium 9.6 mg/dL (8.4-10.2); Carbon Dioxide 25 mmol/L (22-29); Chloride 101 mmol/L (96-108); Estimated Glomerular Filt Rate > 60; Glucose Random 86 mg/dL (60-115); Potassium 4.4 mmol/L (3.3-5.1); Sodium 140 mmol/L (135-145)
[2022-08-17 16:07] LABS: TSH reflex Free T4 1.28 uIU/mL (0.32-4.0)
[2022-08-31 12:12] VITALS: BP 135/88; PULSE 80; RESP 20; O2SAT 100; BMI 26.8
--- NOTE | 2022-08-31 12:26 | P.CONAN_ITS ---
Documented by User: Pallavi Govea NP 09/05/22 08:22 HPI - Anesthesia Eval Consult details Narrative: 46yo M for Right Hip Total Replacement PCP cleared Per heme, ok to proceed without pending abdominal ultrasound (previously seen slightly enlarged spleen), also no indication for platelet transfusion. PMFSH Active Problems Active Problems: All Active Problems (Updated 08/31/22 @ 12:15 by Peace Butler RN) Hypertension (Acute) Alcohol use disorder, moderate, in early remission, dependence (Acute) Vitamin D deficiency (Acute) Hypercalcemia (Acute) Thrombocytopenia (Chronic) Right hip pain (Acute) Adult general medical exam (Acute) Avascular necrosis of bone of right hip (Acute) Preoperative clearance (Acute) Overweight (BMI 25.0-29.9) (Acute) Anxiety (Acute) Gout (Acute) Nicotine dependence (Acute) Past Medical History Medical History Alcohol dependence in remission Anxiety COVID-19 vaccine series completed Encounter to establish care Gout HTN (hypertension) Nicotine dependence Quadriceps tendon rupture Family History Family History Other Substance use disorder Family history of problems with anesthesia: No Surgical History Surgical History History of left knee surgery History of Problems with Anesthesia: No Social History Social History Household Members: Friend(s) and None Household Members Other:: parents/brother Housing: Apartment Are you a primary occasional caregiver to a significant other at home: No Do you presently have visiting nurse or other home services: No Alcohol intake: current Alcohol intake frequency: former alcohol drinker Alcohol type: hard liquor Patient Tobacco Use Status: Current everyday Tobacco user Tobacco use type: Cigarette Cigarettes Per Day: 5 Years Smoked: 20 e-Cigarette/Vaping Use: Never Used Second Hand Smoke Exposure: Yes Use of substances other than those prescribed or required for medical reasons: No Currently Displaying Signs/Symptoms of Drug Intoxication Withdrawal: No Have you been hit, kicked, punched, or otherwise hurt by someone within the past year? 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 Current occupational exposures/hazards: No Cognitive needs: No Hearing needs: No Vision needs: No Narrative Narrative: No recent illness >4 mets without CP/SOB Meds Allergies Allergy/AdvReac Type Severity Reaction Status Date / Time No Known Allergies Allergy Verified 08/16/22 16:13 [No Known Allergies*] Home Medications Medication Instructions Recorded Confirmed Last Taken Type hydroxyzine HCl 50 mg tablet 50 mg PO BEDTIME 08/31/22 09/01/22 Unknown History Exam Exam Date and Time: August 31, 2022 1226 Height,Weight and Vital Signs: Height 5 ft 10 in Weight 84.822 kg Last Vital Signs Pulse 80 08/31/22 12:12 Resp 20 08/31/22 12:12 BP 135/88 08/31/22 12:12 Pulse Ox 100 08/31/22 12:12 O2 Del Method 08/31/22 12:12 Pertinent Lab Results Pertinent Lab Results: Laboratory Tests 08/17/22 08/17/22 08/17/22 14:16 14:16 14:16 WBC 7.7 RBC 5.03 Hgb 16.3 Hct 46.6 MCV 92.6 MCH 32.4 MCHC 35.0 RDW 13.6 Plt Count 116 L MPV 10.2 Immature Gran % (Auto) 0.5 H Neut % (Auto) 65.1 Lymph % (Auto) 25.3 [place] % (Auto) 7.6 Eos % (Auto) 1.2 Baso % (Auto) 0.3 Lymph # (Auto) 2.0 [place] # (Auto) 0.6 Eos # (Auto) 0.1 Baso # (Auto) 0.0 Abs Immat Gran (auto) 0.04 H Absolute Neuts (auto) 5.0 Absolute Nucleated RBC 0.000 Nucleated RBC % (auto) 0.0 Smear Tech's Comments VERIFIED PT 10.5 INR 0.9 Sodium 140 Potassium 4.4 Chloride 101 Carbon Dioxide 25 Anion Gap 18 BUN 8 L D Creatinine 1.02 Estim Creat Clear Calc TNP Estimated GFR > 60 Random Glucose 86 Calcium 9.6 TSH 08/17/22 14:16 WBC RBC Hgb Hct MCV MCH MCHC RDW Plt Count MPV Immature Gran % (Auto) Neut % (Auto) Lymph % (Auto) [place] % (Auto) Eos % (Auto) Baso % (Auto) Lymph # (Auto) [place] # (Auto) Eos # (Auto) Baso # (Auto) Abs Immat Gran (auto) Absolute Neuts (auto) Absolute Nucleated RBC Nucleated RBC % (auto) Smear Tech's Comments PT INR Sodium Potassium Chloride Carbon Dioxide Anion Gap BUN Creatinine Estim Creat Clear Calc Estimated GFR Random Glucose Calcium TSH 1.28 Narrative Narrative: EKG 07/2022 Vent. Rate : 071 BPM ? ? Atrial Rate : 071 BPM ?? P-R Int : 152 ms? QRS Dur : 088 ms ? ? QT Int : 392 ms ? ? ? P-R-T Axes : 056 002 048 degrees ?? QTc Int : 425 ms ? Normal sinus rhythm Low voltage QRS Borderline ECG When compared with ECG of 15-DEC-2021 08:27, No significant change was found ? Airway Mallampati Class: I TM Dist: >3cm Neck ROM: Full Loose/Missing/Broken Teeth: No Heart: RRR Lungs: CTAB Assessment and Plan Assessment Anesthesia Assessment: Anesthesia Plan Discussed, Smoking Cess. Discussed and PAT Visit Final Anesthetic Review Family History of Problems with Anesthesia: No History of Problems with Anesthesia: No Documented by User: Christopher Cabrales MD 09/06/22 14:06 [facility] Past Medical History Medical History Alcohol dependence in remission Anxiety COVID-19 vaccine series completed Encounter to establish care Gout HTN (hypertension) Nicotine dependence Quadriceps tendon rupture Family History Family History Other Substance use disorder Surgical History Surgical History History of left knee surgery Social History Social History Household Members: Friend(s) and None Household Members Other:: parents/brother Housing: Apartment Are you a primary occasional caregiver to a significant other at home: No Do you presently have visiting nurse or other home services: No Alcohol intake: current Alcohol intake frequency: former alcohol drinker Alcohol type: hard liquor Patient Tobacco Use Status: Current everyday Tobacco user Tobacco use type: Cigarette Cigarettes Per Day: 5 Years Smoked: 20 e-Cigarette/Vaping Use: Never Used Second Hand Smoke Exposure: Yes Use of substances other than those prescribed or required for medical reasons: No Currently Displaying Signs/Symptoms of Drug Intoxication Withdrawal: No Have you been hit, kicked, punched, or otherwise hurt by someone within the past year? 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 Current occupational exposures/hazards: No Cognitive needs: No Hearing needs: No Vision needs: No Meds Allergies Allergy/AdvReac Type Severity Reaction Status Date / Time No Known Allergies Allergy Verified 08/16/22 16:13 [No Known Allergies*] Home Medications Medication Instructions Recorded Confirmed Last Taken Type hydroxyzine HCl 50 mg tablet 50 mg PO BEDTIME 08/31/22 09/01/22 Unknown History Assessment and Plan Final Anesthetic Review NPO: Yes ASA Class: II Final Preanesthetic Review: No Changes in Pt Med Stat, Meds/Allgs Chart Reviewed, Consent Obtained/Reviewed and Anes Risks/Benef Reviewed Patient Risk: Low Procedure Risk: Low Anesthetic Plan Anesthetic Plan: GA Disposition: Standard PACU
[2022-08-31 14:20] LABS: MRSA Nasal PCR NEGATIVE (Negative); SA Nasal PCR NEGATIVE (Negative)
[2022-09-06] VITALS (14 sets, daily range): BP systolic 105–139; BP diastolic 63–92; PULSE 60–89; RESP 16–18; TEMP 36.1–36.8; O2SAT 95–100; BMI 26.4
--- NOTE | ~2022-09-06 | XR_ITS ---
EXAMINATION: XR PELVIS CLINICAL INFORMATION: Right ROSMERY. COMPARISON: Pelvis 07/04/2022 TECHNIQUE: AP view of the pelvis. FINDINGS: There is interval right total hip prosthesis with immediate postoperative changes seen. The prosthetic components are in satisfactory alignment. The left hip joint space is normal. XR/XR pelvis 1-2V IMPRESSION: Status post right total hip arthroplasty with immediate postoperative changes seen.
[2022-09-06] MEDS: Lactated Ringers 1,000 ML 100 ML IVCONT ×3 (07:59→20:32)
[2022-09-06] MEDS: oxyCODONE HCl ER 10 MG TAB.ER.12H PO (08:00)
[2022-09-06 08:05] LABS: Hematocrit 46.4 % (42.0-52.0); Hemoglobin 16.8 g/dl (14.0-18.0); Mean Corpuscular HGB Conc 36.2 g/dl (31.0-36.0); Mean Corpuscular Volume 91.2 fL (80.0-98.0); Mean Platelet Volume 9.6 fL (9.4-12.4); Platelet Count 124 X10*3/uL (160-400); Red Blood Count 5.09 X10*6/uL (4.60-5.80); Red Cell Distribution Width 14.9 % (11.0-16.0)
[2022-09-06 08:07] LABS: COVID-19 Test Negative (Negative)
--- NOTE | 2022-09-06 08:28 | PHA.MEDREC ---
Pharmacy Consult ? Medication Reconciliation Pharmacy has reviewed the medication reconciliation completed by nursing. Jacqueline Santos, VietD
--- NOTE | 2022-09-06 09:16 | MHC.SHP ---
Pre-Procedural Eval Section A Date of Service: 09/06/22 The patient is an INPATIENT: No Changes since office visit: Yes Patient answered all questions; No Cold of Flu in the past 2 weeks, No New Medical Problems and No Changes in Medication The History & Physical has been completed within 30 days and I have reviewed it.: Yes Section B Chief Complaint: RTHA Allergies: Allergies Allergy/AdvReac Type Severity Reaction Status Date / Time No Known Allergies Allergy Verified 08/16/22 16:13 [No Known Allergies*] Plan I have reviewed the history and physical and performed a pertinent physical examination on my patient. No changes have occurred unless specified.
--- NOTE | 2022-09-06 11:39 | PM.OP ---
Brief Operative Note Date of Service: 09/06/22 Pre-op diagnosis: Right hip AVN Post-op diagnosis: same Procedure: Right ROSMERY Implants: Mana Trident2 54 with lip liner Ogden Accolade2 #7 132 deg with 36 -2.5 ceramic femoral head Surgeon: Ye Phan MD Anesthesia: GETA and local Was an General Manager [employer] Data Cloud used for this Procedure?: Yes General Manager [employer] Data [employer]: Chery Orourke Estimated blood loss (mL): 200 IV fluids (mL): 1,000 Pathology: other Condition: stable Disposition: PACU
--- NOTE | 2022-09-06 11:41 | P.OP_ITS ---
Operative Note Operative Note Date of Service: 09/06/22 Narrative: Date of Service: 09/06/22 Pre-op diagnosis: Right hip AVN Post-op diagnosis: same Procedure: Right ROSMERY Implants: Merritt Trident2 54 with lip liner Merritt Accolade2 #7 132 deg with 36 -2.5 ceramic femoral head Surgeon: eY Phan MD Anesthesia: GETA and local Was an Studio Data Analyst used for this Procedure?: Yes Studio Data Analyst: Chery Orourke Estimated blood loss (mL): 200 IV fluids (mL): 1,000 Pathology: other Condition: stable Disposition: PACU Procedure in detail: Patient was brought into the operating room and placed in the left lateral decubitus position. All bony prominences were well padded and the limb was prep ped and draped in standard sterile fashion. Time-out was called to identify proper site procedure proper surgeon IV antibiotics and 1 g of transaxemic acid were administered. I began by making a curvilinear incision over the posterolateral aspect of the greater trochanter. Dissection was taken down to the tensor fascia which was incised in line with the incision and a Charnley retractor was placed. Cautery was used to maintain hemostasis. A werewolf device was also used. The hip was internally rotated and the external rotators were identified. The vessels were cauterized and a full-thickness capsular/external rotator layer was developed starting just proximal to the piriformis. This layer was tagged and a dull Hohmann retractor was placed underneath the neck in the hip was dislocated. There was a large area of necrosis over the superior portion of the head measuring approximately 3 x 2 cm. A neck cut was made 1 cm proximal to the lesser trochanter and the head and neck were removed and measured as a 52/54 on the back table. I removed the fovia and I started with a 46 mm reamer, medialized to the inner table, and sequentially reamed up to a size 54 and impacted a 54 cup at approximately 45 degrees of inclination and 25 degrees of version. I then placed a posterior lipped liner and turned my attention to the femur. I identified the piriformis insertion and used this as a starting point for my nelia cutter. The medius tendon was protected with a Hibs retractor. I then used a Charnley awl to identify the canal and a curved curette to remove the lateral bone. I irrigated copiously. I then sequentially broached in the patient's natural version to a size #7 and placed my trial implants. Using a trail head I took the hip through range of motion. I was very satisfied with the stability and length. Therefore I removed all instrumentation and copiously irrigated. I placed my final femoral implant and a trial -2.5mm head and again took the hip through range of motion and was satisfied with the stability and length. The ceramic head was impacted in place and the hip reduced. I then irrigated for 3 minutes with iodine and placed 1 g of local tranaxemic acid. I then performed a capsular closure with 2.0 fiberwire, Narcisa's fascia with 0 Vicryl, subcuticular with 2-0 Vicryl and the skin with sonya. Patient was placed into a sterile dressing. Radiographs were obtained at the completion of the case and I was satisfied with the component position. Patient was extubated brought to the recovery room in stable condition.
[2022-09-06] MEDS: Ketorolac Tromethamine 15 MG/ML VIAL IVPUSH (12:47)
--- NOTE | 2022-09-06 13:18 | PM.IMCN ---
History of Present Illness Data of Consult Service Date: 09/06/22 Primary Care Provider: YOLANDE Roberts HPI Reason for consult: etoh 46M pmh alcohol dependence, b12 defeciency, and anxiety. admitted for elective right total hip for AVN. patient feels well post op. he is not forthcoming about etoh intake, denies withdrawal symptoms or history, reports last drink >2 weeks ago. Review of Systems Review of Systems: Yes all other systems are reviewed and are negative [facility] Medical History Alcohol dependence in remission Anxiety COVID-19 vaccine series completed Encounter to establish care Gout HTN (hypertension) Nicotine dependence Quadriceps tendon rupture Family History Other Substance use disorder Surgical History History of left knee surgery Social History Household Members: Friend(s) and None Household Members Other:: parents/brother Housing: Apartment Are you a primary urgent care physician to a significant other at home: No Do you presently have visiting nurse or other home services: No Alcohol intake: current Alcohol intake frequency: former alcohol drinker Alcohol type: hard liquor Patient Tobacco Use Status: Current everyday Tobacco user Tobacco use type: Cigarette Cigarettes Per Day: 5 Years Smoked: 20 e-Cigarette/Vaping Use: Never Used Second Hand Smoke Exposure: Yes Use of substances other than those prescribed or required for medical reasons: No Have you been hit, kicked, punched, or otherwise hurt by someone within the past year? 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 Current occupational exposures/hazards: No Cognitive needs: No Hearing needs: No Vision needs: No Meds Allergies Allergy/AdvReac Type Severity Reaction Status Date / Time No Known Allergies Allergy Verified 08/16/22 16:13 [No Known Allergies*] Active Medications: Current Medications Acetaminophen (Acetaminophen 325 Mg Tablet) 650 mg PO Q6H PRN PRN Reason: Pain, Mild (Pain Scale 1-3) Aspirin (Aspirin 325 Mg Tablet) 325 mg PO BID [facility] Celecoxib (Celecoxib 200 Mg Capsule) 200 mg PO BID [facility] Clonidine HCl (Clonidine Hcl 0.1 Mg Tablet) 0.1 mg PO BID [facility]; Protocol Colchicine (Colchicine 0.6 Mg Tablet) 0.6 mg PO DAILY PRN PRN Reason: gout Cyanocobalamin (Cyanocobalamin (Vitamin B-12) 1,000 Mcg Tablet) 1,000 mcg PO DAILY [facility] Docusate Sodium (Docusate Sodium 100 Mg Capsule) 100 mg PO BID [facility] Hydromorphone HCl (Hydromorphone Hcl 0.5 Mg/0.5 Ml Syringe) 0.25 mg IVPUSH Q5M PRN; Protocol PRN Reason: Pain, Severe (Pain Scale 7-10) Hydromorphone HCl (Hydromorphone Hcl 0.5 Mg/0.5 Ml Syringe) 0.25 mg IVPUSH Q4H PRN; Protocol PRN Reason: Pain, Severe (Pain Scale 7-10) Hydroxyzine HCl (Hydroxyzine Hcl 50 Mg Tablet) 50 mg PO BEDTIME [facility] Lactated Ringer's (Lr) 1,000 mls @ 100 mls/hr IVCONT .Q10H [facility] Stop: 09/07/22 12:04 Last Admin: 09/06/22 12:12 Dose: 100 mls/hr Promethazine HCl 12.5 mg/ (Sodium Chloride) 50.5 mls @ 202 mls/hr IV ONCE PRN PRN Reason: Nausea and Vomiting Cefazolin Sodium/Dextrose (Ancef) 2 gm in 50 mls @ 100 mls/hr IV POSTOP ONE Stop: 09/06/22 15:29 Ondansetron HCl (Ondansetron Hcl 4 Mg/2 Ml Vial) 4 mg IVPUSH ONCE PRN PRN Reason: Nausea and Vomiting Oxycodone HCl (Oxycodone Hcl Immed Release 5 Mg Tablet) 10 mg PO Q4H PRN PRN Reason: Pain, Moderate (Pain Scale 4-6 Oxycodone HCl (Oxycodone Hcl Er 10 Mg Tab.Er.12h) 10 mg PO BID [facility] Sodium Chloride (0.9 % Sodium Chloride Flush 3 Ml Syringe) 3 ml IVFLUSH QSHIFT [facility] Home Medications Medication Instructions Recorded Confirmed Last Taken Type hydroxyzine HCl 50 mg tablet 50 mg PO BEDTIME 08/31/22 09/01/22 Unknown History Physical Exam Vital Signs and Narrative: Vital Signs: Last Vital Signs Temp 97.9 F 09/06/22 12:52 Pulse 60 09/06/22 12:52 Resp 16 09/06/22 12:52 BP 125/82 09/06/22 12:52 Pulse Ox 98 09/06/22 12:52 O2 Del Method 09/06/22 12:52 BMI result Body Mass Index 26.4 General: no acute distress HEENT: atraumatic Neck: normal to visual inspection CVS: S1, S2, RRR Resp: CTA bilateral Chest: non tender GI: soft, non tender, non distended : no CVA tenderness Skin: no rashes Extremities: no edema Neuro: Oriented X3, grossly intact Psych: cooperative Results Labs CBC and Chem 7: 09/06/22 07:57 08/17/22 14:16 Labs: Laboratory Results - last 24 hr 09/06/22 09/06/22 07:34 07:57 MCV 91.2 MCH 33.0 MCHC 36.2 H RDW 14.9 Plt Count 124 L MPV 9.6 Absolute Nucleated RBC 0.000 Nucleated RBC % (auto) 0.0 COVID-19 (SUZANNE) Negative COVID-19 Clin Com See Note Assessment and Plan (1) Gout: Qualifiers: Gout site: foot Status: Acute Plan 46M pmh alcohol dependence, b12 defeciency, gout, and anxiety admitted for elective right hip arthroplasty s/p right hip arthroplasty management per ortho etoh dependence monitor ciwa b12 deficiency complicated by thrombocytopenia continue supplement anxiety clonidine, ataarax dvt prophylaxis - asa 325mg bid ful code patient appears medically stable, will sign off for now, please recall if patient experiencing withdrawal or other issue comes up.
[2022-09-06] MEDS: ceFAZolin Sodium/Dextrose,Iso 2 GM/50 ML PIGGYBACK IV (15:45)
[2022-09-06] MEDS: cloNIDine HCL 0.1 MG TABLET PO (20:17)
[2022-09-06] MEDS: Celecoxib 200 MG CAPSULE PO (20:18)
[2022-09-06] MEDS: hydrOXYzine HCL 50 MG TABLET PO (20:18)
[2022-09-06] MEDS: Docusate Sodium 100 MG CAPSULE PO (20:18)
[2022-09-06] MEDS: Acetaminophen 325 MG TABLET 650 MG PO (20:18)
[2022-09-07 03:46] VITALS: BP 110/69; PULSE 58; RESP 16; TEMP 36.6; O2SAT 98
[2022-09-07] MEDS: oxyCODONE HCl Immed Release 5 MG TABLET 10 MG PO ×3 (04:47→14:50)
[2022-09-07] MEDS: Lactated Ringers 1,000 ML 100 ML IVCONT (05:01)
[2022-09-07 06:57] LABS: MANUAL DIFF FLAG NO
[2022-09-07 07:02] LABS: Basophils Percent Auto 0.1 % (0-2); Eosinophils Absolute Auto 0.1 X10*3/uL (0.0-0.4); Eosinophils Percent Auto 0.6 % (0-4); Hematocrit 35.2 % (42.0-52.0); Hemoglobin 12.4 g/dl (14.0-18.0); Imm Gran Abs Auto 0.03 X10*3/uL (0.00-0.03); Imm Gran Pct Auto 0.4 % (0.0-0.4); Lymphocytes Percent Auto 12.7 % (20-40); Mean Corpuscular HGB Conc 35.2 g/dl (31.0-36.0); Mean Corpuscular Hemoglobin 32.9 pg (27.0-33.0); Mean Corpuscular Volume 93.4 fL (80.0-98.0); Monocytes Absolute Auto 0.8 X10*3/uL (0.1-1.2); Monocytes Percent Auto 10.1 % (2-11); Neutrophils Absolute Auto 5.9 x10*3/uL (2.0-8.3); Neutrophils Percent Auto 76.1 % (45-73); Red Blood Count 3.77 X10*6/uL (4.60-5.80); Red Cell Distribution Width 15.2 % (11.0-16.0); White Blood Count 7.7 X10*3/uL (4.8-10.8)
[2022-09-07 07:19] LABS: Anion Gap 13 (12-20); Blood Urea Nitrogen 8 mg/dL (9-16); Calcium 8.4 mg/dL (8.4-10.2); Carbon Dioxide 28 mmol/L (22-29); Chloride 103 mmol/L (96-108); Creatinine Clr Calc Pharmacy 113.1; Estimated Glomerular Filt Rate > 60; Glucose Fasting 111 mg/dL (60-99); Potassium 4.1 mmol/L (3.3-5.1); Sodium 140 mmol/L (135-145)
[2022-09-07 07:46] VITALS: BP 115/73; PULSE 66; RESP 16; TEMP 37.2; O2SAT 98
--- NOTE | 2022-09-07 07:49 | PM.PNORT ---
Subjective Subjective Date of Service: 09/07/22 Interval history: POD1 s/p RTHA. Patient is resting comfortably in bed. No overnight events. Pain is well managed. No additional complaints. Physical Exam Vital Signs: Vital Signs: Last Vital Signs Temp 98.9 F 09/07/22 07:46 Pulse 66 09/07/22 07:46 Resp 16 09/07/22 07:46 BP 115/73 09/07/22 07:46 Pulse Ox 98 09/07/22 07:46 O2 Del Method 09/07/22 07:46 BMI result Body Mass Index 26.4 Const: General: cooperative, healthy appearing and no acute distress Resp: Effort & Inspection: normal respiratory effort and able to speak in complete sentences Cardio: Rate: regular rate Peripheral pulses: Peripheral pulses 2+ throughout GI: Palpation (GI): Soft to palpation Skin: Lesions: no lesions Rashes: no rashes Extrem: Other: Right hip dressing is clean, dry, and intact. Able to dorsiflex and plantarflex. NVI. Procedures Date of Service Date of Service: 09/07/22 Progress Note: A&P Assessment and plan (1) Status post total replacement of right hip: Status: Acute Plan Continue pain mgmnt Begin ASA for dvt ppx begin PT for RTHA Dispo planning-Pending PT eval, pain mgmnt Time Spent With Patient Time: Total time spent is greater than 50% in coordination of care (as documented) at patient's floor/unit and/or counseling patient: Quality Stroke Does the patient have a stroke diagnosis?: No VTE Prior VTE?: No VTE Risk Level:: Medical - moderate - high VTE Device Contraindication: N/A - Device Ordered VTE Drug Contraindication: N/A - Med Ordered
[2022-09-07 07:59] LABS: Mean Platelet Volume 10.3 fL (9.4-12.4); Platelet Count 93 X10*3/uL (160-400)
[2022-09-07] MEDS: Celecoxib 200 MG CAPSULE PO (08:34)
[2022-09-07] MEDS: cloNIDine HCL 0.1 MG TABLET PO (08:34)
[2022-09-07] MEDS: Aspirin 325 MG TABLET PO (08:34)
[2022-09-07] MEDS: Cyanocobalamin (Vitamin B-12) 1,000 MCG TABLET 1000 MCG PO (08:35)
[2022-09-07] MEDS: Docusate Sodium 100 MG CAPSULE PO (08:35)
[2022-09-07] MEDS: oxyCODONE HCl ER 10 MG TAB.ER.12H PO (08:35)
[2022-09-07] MEDS: Acetaminophen 325 MG TABLET 650 MG PO ×2 (08:35→14:50)
--- NOTE | 2022-09-07 10:23 | MHC.CM.PN ---
PATIENT IS FULLY INDEPENDENT NO DME OR VNA SERVICES. HE IS COVID VAX X 2. WILL BE STAYING W/ BROTHER AT [address] [facility] IN [place]. [facility]FERRAL TO [facility] INDICATES THIS ADDRESS. TAJ NEWTON IS HCP. COPY REQUESTED. HE IS AWARE THAT CASE MANAGEMENT CAN ASSIST WITH ONE IF HE WOULD LIKE TO COMPLETE ONE FOR HIS RECORDS. POSSIBLE DC TODAY HCP CURRENTLY TRYING TO [facility] HOME FOR PATIENT
[2022-09-07 11:40] VITALS: BP 106/58; PULSE 65; RESP 17; TEMP 36.7; O2SAT 95
--- NOTE | 2022-09-07 13:48 | MHC.CM.PN ---
PATIENT TO DC TO HIS BROTHER'S HOME TODAY WITH NEW [facility] SERVICES. PATIENT AND MOM IN ROOM
--- NOTE | 2022-09-07 14:43 | HO.POSTANES ---
Post Anesthesia Evaluation Post Anesthesia Evaluation Vital Signs: Vital Signs Temp Pulse Resp BP Pulse Ox O2 Del Method 09/07/22 11:40 98.0 F 65 17 106/58 L 95 Room Air 09/07/22 12:05 Room Air 09/07/22 07:46 98.9 F 66 16 115/73 98 Room Air 09/07/22 03:46 97.9 F 58 16 110/69 98 Room Air Anesthesia: General Mental Status: Awake Pain Control: Satisfactory Nausea/Vomiting: None Hydration: Adequate Anesthesia-Related Issues: No Anes. Related Issues
--- NOTE | 2022-09-07 15:28 | P.F2F_ITS ---
Service Date Service Date: 09/07/22 Encounter Date of encounter: 09/07/22 Reasons for Services Signs and symptoms assessed: Pt. is considered homebound due to recent surgery. Unable to drive, poor balance, poor gait mechanics s/p right total hip arthroplasty Reason for physical therapy: home safety and mobility, therapeutic exercises, restore joint function, gait/transfer training, assess need for DME and ADL training Homebound: Leaving the home is medically contraindicated at this time without the asist of a device and/or another person due th the listed conditions above and below. Reason homebound: unsteady gait / fall risk, leg weakness, pain with ambulation, pain with transfers, poor balance / fall risk and unable to drive Homebound supporting statement: Pt. is considered homebound due to recent surgery. Unable to drive, poor balance, poor gait mechanics. Certification: Based on the above findings, I certify that this patient is confined to the home and needs intermittent half-way care, physical therapy and/or speech therapy, or continues to need occupational therapy. The patient is under my care, and I have initiated the establishment of the plan of care. The patient will be followed by a physician who will periodically review the plan of care.
--- NOTE | 2022-09-13 22:58 | P.DS_ITS ---
DS: Providers Provider Date of Service: 09/07/22 Date of admission: 09/06/22 07:34 Primary care physician: YOLANDE Roberts Consults: 09/06/22 13:03 Consult to Hospitalist Routine Consulting Provider: Hospitalist Reason For Exam: h/o etoh abuse DS: Diagnosis Discharge Diagnosis (1) Status post total replacement of right hip: Status: Acute DS: Summary Hospital Course Hospital Course: The patient underwent a successful Right total hip arthroplasty, was transferred to PACU and then to the floor to recover. During their stay, their vitals were stable, afebrile at 98.0. Labs were unremarkable, H/H 12.4/35.2 . POD 1 he was started on ASA for DVT ppx, healso received PT and OT services twice a day. Prior to discharge, dressing was clean dry and intact,and the plan was to be discharged home with VNA services Time Spent with Patient Time attestation: Total time spent providing and/or coordinating discharge services: Discharge coordination time: Less than 30 minutes Quality: Safe Use of Opioids Does Pt have an Active Cancer Diagnosis on the Problem List?: No Quality: Stroke Does the patient have a stroke diagnosis?: No Physical Exam Vital Signs: Vital Signs: Last Vital Signs Temp 98.0 F 09/07/22 11:40 Pulse 65 09/07/22 11:40 Resp 17 09/07/22 11:40 BP 106/58 L 09/07/22 11:40 Pulse Ox 95 09/07/22 11:40 O2 Del Method 09/07/22 12:05 BMI result Body Mass Index 26.4 Const: General: cooperative, healthy appearing and no acute distress Resp: Effort & Inspection: normal respiratory effort and able to speak in complete sentences Cardio: Rate: regular rate Peripheral pulses: Peripheral pulses 2+ throughout GI: Palpation (GI): Soft to palpation Skin: Lesions: no lesions Rashes: no rashes Extrem: Other: Right hip dressing is clean, dry, and intact. Able to dorsiflex and plantarflex. NVI. DS: Data Data Completed and Pending Completed studies during hospitalization [Text1]: Pending at discharge 09/06/22 10:59 Surgical [PTH] Routine Procedures Replacement of Right Hip Joint with Ceramic Synthetic Substitute, Uncemented, Open Approach (09/06/22) Discharge Plan Discharge Anticipated Discharge Date/Time: 09/07/22 13:27 Patient Disposition: Home Health Service Discharge Diagnosis: RT ROSMERY Referrals: Mohini HOGAN [Outside] - 1 Week Chery Orourke PA-C [Physician Senior Sharepoint Architect] - 2 Weeks (09/22/22 2:30 [facility] Chery Orourke PA-C ) Rika Mejias FNP [Primary Care Provider] - 1 Week Discharge Medications: New docusate sodium 100 mg Capsule 100 mg PO BID 7 Days Qty: 14 0RF oxycodone 10 mg tablet 10 mg PO Q4H PRN (Reason: Pain, Moderate (Pain Scale 4-6) 7 Days Qty: 42 0RF Rx Instructions: Partial Fill upon patient request. acetaminophen 325 mg Tablet 650 mg PO Q6H PRN (Reason: Pain, Mild (Pain Scale 1-3)) 30 Days Qty: 240 3RF aspirin 325 mg Tablet 325 mg PO BID 42 Days Qty: 84 0RF Continued colchicine 0.6 mg tablet 0.6 mg PO DAILY PRN (Reason: gout) Qty: 30 0RF cyanocobalamin (vitamin B-12) [Vitamin B-12] 1,000 mcg Tablet 1,000 mcg PO DAILY Qty: 90 3RF hydroxyzine HCl 50 mg tablet 50 mg PO BEDTIME clonidine HCl 0.1 mg tablet 0.1 mg PO BID Qty: 56 1RF Rx Instructions: Hold if SBP <100 No Action (DME[facility] See Rx Instructions .MEDSUPPLY Qty: 1 0RF Rx Instructions: Folding Front wheeled walker Discharge Orders: Discharge Order (Routine); Ordered 09/07/22 Ordered By: Chery Orourke Diet: Regular diet Activity on Discharge: Use cane or walker Stand Alone Forms: Patient Portal Discharge page Care Plan Goals: Restore function of joint Health Concerns: none Plan of Treatment: Physical Therapy Pain management DVT prophylaxis Assessment: * Physical Therapy for Total hip arthroplasty: wbat, posterior precautions, gait training, ROM, strength * Limit stair climbing * No showering, no tub bath-keep dressing clean, dry and intact * No driving x6 weeks * Continue Aspirin twice a day x 6 weeks * Follow up with [facility] in 2 weeks: 09/22/22 @ 2:30pm * [facility] Orourke PA-C * --you will also have your first out patient PT eval on the day of your post op appt-so please plan on being in the office that day for an extended period of time. Discharge Date/Time: 09/07/22 15:41
== END 2022-09-07 15:41 | disposition home health service (06) | DRG 470 ==
LOC: HO.SSSA 07:34 → HO.S3 11:33
PROVIDERS: Nurse Practitioner; Physician Assistant; Admitting Provider Orthopaedic Surgery; PCP Nurse Practitioner Family; Visit Provider Orthopaedic Surgery
PROC: 0SR903A Replacement of Right Hip Joint with Ceramic Synthetic Substitute, Uncemented, Open Approach (ICD-10-PCS; CPT 27130; principal; 2022-09-06 09:40)
DX: M87.051 Idiopathic aseptic necrosis of right femur (principal); F41.9 Anxiety disorder, unspecified; F17.210 Nicotine dependence, cigarettes, uncomplicated; D69.6 Thrombocytopenia, unspecified; E53.8 Deficiency of other specified B group vitamins; F10.20 Alcohol dependence, uncomplicated; M10.9 Gout, unspecified; Z79.899 Other long term (current) drug therapy
CPT/HCPCS: 36415; 72170; 80048; 84443; 85025; 85027; 85610; 86850; 86900; 86901; 87635; 87640; 87641; 88304; 88311; 93005; 97110; 97116; 97161; 97165; 97530; C1776; J0131; J0690; J1170; J1885; J2250; J2405; J2795; J3010

== ENCOUNTER 2022-09-29 09:00 | Outpatient (RCR) | payer OTHER, SELFPAY ==
--- NOTE | 2022-09-22 15:32 | MHC.PT.EP ---
[facility] [place] Office [place] Office [place] Office [address] Miguel Friedman [address] [phone] F: [phone] F: [phone] F: [phone] F: [phone] Physical Therapy Plan of Care Date of Evaluation: Date of Surgery: 09/06/22 Diagnosis: S/P RIGHT ROSMERY DUE TO AVASCULAR NECROSIS Assessment: 46 YO MALE REF TO PT S/P Rt ROSMERY, POSTERIOR APPROACH ON 09/06/22- HE IS CURRENTLY AMB W A W/WALKER. 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 Pt IS CURRENTLY RESIDING WITH HIS BROTHER. OBJECTIVE FINDINGS: PO ROM DEFICITS RIGHT HIP, TIGHT HIP FLEXORS/ CALF MM, (+) STRENGTH DEFICITS IN Rt PROX LE AND LUMBOPELVIC REGION, AND RIGHT PROX LE/ GROIN PAIN. Pt IS AWARE OF HIS POSTERIOR ROSMERY RESTRICTIONS/ PRECAUTIONS. FUNCTIONALLY, Pt IS CURRENTLY LIMITED WITH BED MOB, INCR UEs USAGE W TRANSFERS, DECR STANDING ELYSSA, ALTERED GAIT MECHANICS, HE IS NOT CLEARED TO DRIVE, STAIR MGMT, AND RESTRICTED WITH MORE PHYSICALLY DEMANDING ADLs. Pt WOULD BENEFIT FROM PT AT THIS TIME TO GUIDE HIM IN HIS Rt ROSMERY POST-OP COURSE, DEV A PROGR HEP, ADDRESS PAIN MGMT, AND OBTAINING MAXIMAL LEVEL OF FUNCTIONAL INDEPENDENCE. Frequency and Duration: The patient will be seen 2 x WK x 10 WKS Short Term Goals: *Pt INDEP W ROSMERY POSTERIOR APPROACH PRECAUTIONS AND SELF-MGMT OF POST-OP STATUS TO PROMOTE OPTIMAL HEALING *Pt WILL DEMON EFFICIENT GAIT MECHANICS W LEAST RESTRICTIVE ASST DEVICE ON LEVEL GROUND AND STAIRS *Pt'S RIGHT HIP PAIN WILL DECR TO 2-3/10 *Pt DEMON APPROP BED MOB/ POSITIONING/ SIT <-> STAND/ CAR TRANSFERS Product Development Coordinator Goals: *Pt WILL IMPROVE LUMBOPELVIC/ Rt LE STRENGTH TO AT LEAST 5-/5 *Pt RESUME AT LEAST PLOF EVIDENT W IMPROVED LEFI SCORE BY 8-10 (AT EVAL 54/80 ) *Pt INDEP W PROGR HEP AND SELF-SX MGMT TECHN *Pt DEMON INDEP / PROPER TECHN W SIMUL WORK ENVIRONMENT STEP UP/ DOWN Treatment Plan: Modalities to reduce pain, spasms and effusion. Manual therapy to restore motion and function. Therapeutic exercise to improve strength and flexibility. Neuromuscular re-education for posture and balance. Therapeutic activities to return to functional activities of daily living. Electronically signed by: PATRICIA HAGEN PT Please sign and return to therapist. Thank you for your referral.
== END 2023-01-12 07:38 | disposition home or self-care (01) ==
LOC: HO.PTWFD 09:00
PROVIDERS: Visit Provider Physician Assistant
DX: Z96.641 Presence of right artificial hip joint (principal)
CPT/HCPCS: 97110; 97162; 97535

== ENCOUNTER 2022-11-30 11:27 | Outpatient (REF) | payer OTHER, SELFPAY | END 2022-11-30 11:28 | disposition home or self-care (01) | LOC: HO.HOSX 11:27 | PROVIDERS: Visit Provider Orthopaedic Surgery | DX: Z13.89 Encounter for screening for other disorder (principal) ==

== ENCOUNTER 2022-12-01 14:16 | Outpatient (REF) | payer OTHER, SELFPAY ==
--- NOTE | ~2022-12-01 | XR_ITS ---
EXAMINATION: XR PELVIS CLINICAL INFORMATION: Hip pain COMPARISON: Pelvic radiographs 09/06/2022, 07/04/2022. TECHNIQUE: AP x2 views of the pelvis are obtained. FINDINGS: There has been prior right hip replacement. Hardware is intact. No fracture or dislocation, osteolysis, or destructive process. No periostitis. The bony pelvis is unremarkable. The SI joints and pubis show no diastases. Left hip unremarkable. XR/XR pelvis 1-2V IMPRESSION: Prior right hip replacement. Hardware intact. No osteolysis or destructive process.
== END 2022-12-01 14:17 | disposition home or self-care (01) ==
LOC: HO.HOSX 14:16
PROVIDERS: Visit Provider Orthopaedic Surgery
DX: Z47.1 Aftercare following joint replacement surgery (principal); Z96.641 Presence of right artificial hip joint
CPT/HCPCS: 72170

== ENCOUNTER 2024-03-05 15:43 | Outpatient (AMB) | payer OTHER, SELFPAY ==
--- NOTE | 2024-03-05 15:45 | A.OFFPC_ITS ---
Vital Signs 03/05/24 15:50 03/05/24 16:37 Height 5 ft 10 in Weight 183 lb 6 oz BMI 26.3 BP 150/80 H 130/88 Blood Pressure Location Lt brachial Lt brachial Position Sitting Sitting Pulse 92 Pulse Source Pulse Oximeter Pulse Oximetry (%) 97 Oxygen Delivery Method Room Air Intake Visit Reasons: TC/Annual physical Danyell. S Intake Note: Patient is here today for a KOMAL from B.S and lump at the back of left ear. New Business Clerk Required: No Agile Tester: Not Required per policy Accompanied by: Self / Same As Patient Allergies No Known Allergies [No Known Allergies*] Allergy (Verified 03/05/24 16:30) Medication List - Last Reconciled 03/05/24 by Sherman Phoenix MD clonidine HCl 0.1 mg PO BID colchicine 0.6 mg PO DAILY PRN Tobacco use date assessed: 03/05/24 Dental Screening Dental Screen Date: 03/05/24 Did you have a dental visit in the last 12 months?: No Did you have a dental problem in the last 6 months where you did not have access to dental care?: No Was dental information given to patient?: No HPI TC/Annual physical Danyell. S HPI Details Patient comes in today for his annual physical examination - is transferring over from Rika Mejias, who left the practice recently although patient has also not been seen here since July 2022 Patient states that he currently feels okay He denies any headaches or dizziness Denies any chest pains, no shortness of breath No nausea/ vomiting, no abdominal pain No change in bowel habits noted He denies any acute urinary symptoms States that he has a raise skin lesion/growth over the back of the left side of his neck right at his hairline that he states has been present for years but it is bothering him a lot (cosmetically) and he would like to see if this can be removed - states that the lesion does not itch or hurt and has not gotten any bigger lately He is also surprised that his blood pressure was high when it was checked after he came in - states that he has had a few high blood pressure readings in the past but has never been started on any Rx for his blood pressure Was on Clonidine BID before but that was prescribed for his anxiety States that he also had issues with gout in the past but has had no flare-ups recently although he would like to have his Colchicine Rx refilled for when he has acute flare ups He has never had a screening colonoscopy done in the past [facility] Medical History (Updated 03/06/24 @ 05:16 by Sherman Phoenix MD) Gout COVID-19 vaccine series completed HTN (hypertension) Alcohol dependence in remission Encounter to establish care Nicotine dependence Anxiety Quadriceps tendon rupture Surgical History History of right hip replacement History of left knee surgery Family History Other Substance use disorder Social History Household Members: Friend(s) and None Household Members Other:: parents/brother Housing: Apartment Are you a primary director of critical care to a significant other at home: No Do you presently have visiting nurse or other home services: No Alcohol intake: current Alcohol intake frequency: a few times a month Alcohol type: beer Patient Tobacco Use Status: Current someday Tobacco user Tobacco use type: Cigarette Cigarettes Per Day: 5 Years Smoked: 20 e-Cigarette/Vaping Use: Never Used Second Hand Smoke Exposure: Yes service: No Current occupational status: employed 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 1. Little interest or pleasure in doing things: not at all 2. Feeling down, depressed, or hopeless: not at all 3. Trouble falling or staying asleep, or sleeping too much: not at all 4. Feeling tired or having little energy: not at all 5. Poor appetite or overeating: not at all 6. Feeling bad about yourself - or that you are a failure or have let yourself or your family down: not at all 7. Trouble concentrating on things, such as reading the newspaper or watching television: not at all 8. Moving or speaking so slowly that other people could have noticed. Or the opposite - being so fidgety or restless that you have been moving around a lot more than usual: not at all 9. Thoughts that you would be better off or of hurting yourself in some way: not at all Total score: 0 Depression Screening Interpretation: Negative Depression Screening Done: Yes 45001 - PHQ-9 Billing: Yes Source: Developed by Drs. Conrad Whiteside, Elle Duffy, Genaro Murphy and colleagues, with an educational darin from [employer] Thrive Questionnaire Date Thrive assessed: 03/05/24 I am a: Patient What is your living situation today?: I have a steady place to live Within the past 12 months, did the food you bought not last and you didn't have the money to get more?: Never true Within the past 12 months, did you worry whether your food would run out before you got money to buy more?: Never true Do you have trouble paying for medicines?: No Do you have trouble getting transportation to medical appointments?: No Do you have trouble paying your heating and electricity bill?: No Do you have trouble taking care of your child, family member or friend?: No Do you have trouble with day-to-day activities such as bathing, preparing meals, shopping, managing finances, etc.?: No Are you currently unemployed and looking for a job?: No Are you interested in more education?: No Currently or been in a relationship where the following occur: no concerns reported THRIVE Score: 0 AUDIT C Alcohol Use Questionnaire (AUDIT-C) 1. How often do you have a drink containing alcohol?: Never 3. How often do you have six or more drinks on one occasion?: Never Total Score: 0 Score Reviewed/Action Taken: Yes KEITH-7 AMB Questionnaire KEITH-7 Date KEITH - 7 assessed: 03/05/24 Feeling nervous, anxious, or on edge: 0 = Not at all Not being able to stop or control worryin = Not at all Worrying too much about different things: 0 = Not at all Trouble relaxin = Not at all Being so restless that it is hard to sit still: 0 = Not at all Becoming easily annoyed or irritable: 0 = Not at all Feeling afraid as if something awful might happen: 0 = Not at all Total KEITH-7 score (0-4 normal; 5-9 mild; 10-14 moderate; 15-21 severe): 0 Source: Developed by Gigi Nayaket B.W. Clive, Genaro Murphy and colleagues, with an educational darin from [employer] Review of Systems Const Denies chills, Denies fatigue, Denies fever(s), Denies headache(s), Denies malaise and Denies weakness Eyes Denies blurry vision, Denies change in vision, Denies irritation and Denies itchy eyes ENT Denies dysphagia, Denies dizziness, Denies otalgia, Denies headache(s), Denies nasal congestion, Denies neck pain, Denies odynophagia and Denies sore throat Card Denies chest pain, Denies rapid heart rate, Denies irregular heart rhythm, Denies palpitations and Denies dyspnea Resp Denies chest congestion, Denies cough, Denies dyspnea and Denies wheezing GI Denies abdominal pain, Denies bloating, Denies constipation, Denies dysphagia, Denies heartburn, Denies diarrhea, Denies nausea, Denies odynophagia and Denies vomiting Denies hematuria, Denies difficulty urinating, Denies dysuria, Denies urinary frequency and Denies urinary urgency Musc Denies back pain, Denies arthralgias, Denies joint swelling, Denies muscle weakness and Denies neck pain Skin/Breast Details: (+) raised skin lesion over the back of the left side of the neck - see HPI Denies change in pigmentation, Denies rash and Denies unusual bruising Neuro Denies dizziness, Denies headache(s), Denies paresthesias and Denies weakness Psych Denies anxiety and Denies depression Endo Denies fatigue and Denies palpitations Aller/Immun Denies itchy eyes and Denies wheezing Physical exam (Primary Care) Vital Signs: Last Vital Signs Pulse 92 03/05/24 15:50 BP 130/88 03/05/24 16:37 Pulse Ox 97 03/05/24 15:50 Oxygen Delivery Method Room Air 03/05/24 15:50 BMI result Body Mass Index 26.3 Tobacco/Smoking Status: Tobacco use Status Tobacco use date assessed 03/05/24 03/05/24 15:57 Patient Tobacco Use Status Current someday Tobacco 03/05/24 15:57 Tobacco use type Cigarette 03/05/24 15:56 e-Cigarette/Vaping Use Never Used 03/05/24 15:56 PHQ-9: PHQ-9 Score PHQ-9: Total score 0 03/06/24 04:24 Depression Screening Interpretation: Negative Thrive Assessment: Date of Thrive Assessment Date Thrive assessed 03/05/24 03/05/24 15:57 Currently or been in a relationship where the following occur: no concerns reported Const General: no acute distress, alert and awake Orientation/consciousness: patient oriented x3 HENMT Head: Yes normocephalic and Yes atraumatic Ears: external ears normal, TM's normal bilaterally and EAC's normal General nose exam: No nasal discharge present Face and sinus: Yes normal facial exam and Yes sinuses nontender Teeth and gingiva: dentition normal Throat: Yes posterior oropharynx normal and Yes tonsils normal (no TP congestion) Eyes Eyelids: Yes eyelids normal Conjunctivae: conjunctivae normal Pupils: Equal, round and reactive pupils present EOM: EOMs intact bilaterally Neck Neck: Yes no lymphadenopathy and Yes supple Thyroid: Thyroid normal Resp Auscultation: clear to auscultation bilaterally, no rales and no wheezes Cardio Rate: regular rate Rhythm: regular rhythm Heart sounds: no murmurs GI Palpation (GI): Soft to palpation, nontender and No hepatosplenomegaly present Auscultation: normal bowel sounds General: Yes no CVA tenderness Back/Spine/Pelvis Back: no CVA tenderness Thoracic/Lumbar Spine: thoracic and lumbar spine normal to inspection Skin Other: (+) raised skin lesion over the back of the left side of the neck at the level of the hairline Rashes: no rashes Neuro General: patient oriented x3, moves all extremities, no focal motor deficits and CN's II-XI intact bilaterally Cranial nerves: Yes Equal, round and reactive pupils present Cognition (Neuro): normal cognition Gait exam (Neuro): Normal gait present Extrem General: Yes no clubbing, cyanosis or edema Assessment and Plan Assessment & Plan (1) Annual physical exam: Code(s): Z00.00 - Encounter for general adult medical examination without abnormal findings Plan: Check labs He has never had a screeninig colonoscopy done and will be referred for this (2) Dermoid cyst: Code(s): D36.9 - Benign neoplasm, unspecified site Plan: Will refer him to surgery for further evaluation and consideration for excision of the cyst over the back of the left side of his neck (3) Elevated blood-pressure reading without diagnosis of hypertension: Code(s): R03.0 - Elevated blood-pressure reading, without diagnosis of hypertension Plan: His initial blood pressure today was high at 150/80 when he first arrived for his appointment Blood pressure has since come down as his repeat BP reading is now 130/88 mm Reinforced low sodium diet He is currently on no meds for his blood pressure; was on Clonidine BID in the past but this was prescribed to help with his anxiety He is advised to monitor his blood pressure regularly for now (4) Vitamin D deficiency: Code(s): E55.9 - Vitamin D deficiency, unspecified Plan: He has not taken any Vitamin D supplements in a while Will recheck his Vitamin D level for follow up (5) Gout: Code(s): M10.9 - Gout, unspecified Qualifiers: Gout site: unspecified site Gout etiology: unspecified cause Chronicity: unspecified Qualified Code(s): M10.9 - Gout, unspecified Plan: Reinforced low purine diet Patient states that he has not had any acute flare ups lately but would like to have his Colchicine Rx refilled for acute attacks Will restart him on Colchicine 0.6 mg QD PRN (6) Smoker: Code(s): F17.200 - Nicotine dependence, unspecified, uncomplicated Plan: Counseled on smoking cessation (7) Overweight (BMI 25.0-29.9): Code(s): E66.3 - Overweight Plan: Reinforced diet/exercise as tolerated/lose weight (8) Colon cancer screening: Code(s): Z12.11 - Encounter for screening for malignant neoplasm of colon Plan: Will refer him to GI for his screening colonoscopy Plan Follow up in 6 months Orders: Orders Comprehensive [place]. Panel Fast 03/05/24 E78.00 - Pure hypercholesterolemia, unspecified, Z00.00 - Encounter for general adult medical examination without abnormal findings Prostate Specific Antigen Scr 03/05/24 Z00.00 - Encounter for general adult medical examination without abnormal findings Complete Blood Count Auto Diff 03/05/24 D64.9 - Anemia, unspecified, Z00.00 - Encounter for general adult medical examination without abnormal findings Lipid Panel 03/05/24 E78.00 - Pure hypercholesterolemia, unspecified, Z00.00 - Encounter for general adult medical examination without abnormal findings TSH reflex Free T4 03/05/24 E78.00 - Pure hypercholesterolemia, unspecified, Z00.00 - Encounter for general adult medical examination without abnormal findings UA CC w/rflx Micro + Cult 03/05/24 R30.0 - Dysuria, Z00.00 - Encounter for general adult medical examination without abnormal findings Vitamin D 25-OH Total 03/05/24 E55.9 - Vitamin D deficiency, unspecified, Z00.00 - Encounter for general adult medical examination without abnormal findings Uric Acid 03/05/24 M10.9 - Gout, unspecified, Z00.00 - Encounter for general adult medical examination without abnormal findings Referrals General Surgery Referral D36.9 - Benign neoplasm, unspecified site Gastroenterology Referral Z12.11 - Encounter for screening for malignant neoplasm of colon Medications: Refilled colchicine 0.6 mg PO DAILY PRN 30 tabs 5RF gout M10.9 - Gout, unspecified Coding Level of Care Code Est Pt Prev Care 40-64y(65941) Diagnoses Annual physical exam Z00.00 Dermoid cyst D36.9 Elevated blood-pressure reading without diagnosis of hypertension R03.0 Vitamin D deficiency E55.9 Gout, unspecified cause, unspecified chronicity, unspecified site M10.9 Gout site: unspecified site Gout etiology: unspecified cause Chronicity: unspecified Smoker F17.200 Overweight (BMI 25.0-29.9) E66.3 Colon cancer screening Z12.11
[2024-03-05 15:50] VITALS: BP 150/80; PULSE 92; O2SAT 97; BMI 26.3
[2024-03-05 16:37] VITALS: BP 130/88
== END 2024-03-05 16:52 | disposition home or self-care (01) ==
PROVIDERS: PCP Nurse Practitioner Family; Visit Provider Internal Medicine
DX: Z00.00 Encounter for general adult medical examination without abnormal findings (principal); D36.9 Benign neoplasm, unspecified site; R03.0 Elevated blood-pressure reading, without diagnosis of hypertension; E55.9 Vitamin D deficiency, unspecified; M10.9 Gout, unspecified; F17.200 Nicotine dependence, unspecified, uncomplicated; E66.3 Overweight; Z12.11 Encounter for screening for malignant neoplasm of colon
CPT/HCPCS: 99396

== ENCOUNTER 2024-04-02 14:25 | Outpatient (AMB) | payer OTHER, SELFPAY ==
--- NOTE | 2024-04-02 14:47 | MHC.OFFVIS ---
Vital Signs 04/02/24 14:49 Height 5 ft 10 in Weight 185 lb BMI 26.5 BP 162/79 H Blood Pressure Location Rt brachial Position Sitting Pulse 78 Intake Visit Reasons: CYST POSTERIOR NECK/LOWER OCCIPITAL AREA Intake Note: Patient referred by PCP Dr. Phoenix for cyst on post neck. Present for 1yr. Patient c/o: enlarging, tender after haircuts. Residential Aide Required: No Accompanied by: Self / Same As Patient Allergies No Known Allergies [No Known Allergies*] Allergy (Verified 04/02/24 14:48) Medication List - Last Reconciled 04/03/24 by Barney Marroquin MD colchicine 0.6 mg PO DAILY PRN HPI Comments Details: Patient presents for evaluation of a left posterior neck sebaceous cyst. He has had this many years time. It is increasing in size, become more symptomatic. Like to have removed. He has no such lesions elsewhere. Chart was reviewed and patient evaluated [facility] Medical History Gout COVID-19 vaccine series completed HTN (hypertension) Alcohol dependence in remission Encounter to establish care Nicotine dependence Anxiety Quadriceps tendon rupture Surgical History History of right hip replacement History of left knee surgery Family History Other Substance use disorder Social History Household Members: Friend(s) and None Household Members Other:: parents/brother Housing: Apartment Are you a primary life care planner to a significant other at home: No Do you presently have visiting nurse or other home services: No Alcohol intake: current Alcohol intake frequency: a few times a month Alcohol type: beer Patient Tobacco Use Status: Current someday Tobacco user Tobacco use type: Cigarette Cigarettes Per Day: 5 Years Smoked: 20 e-Cigarette/Vaping Use: Never Used Second Hand Smoke Exposure: Yes service: No Current occupational status: employed 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 No other gross pathology demonstrated. Risks, benefits, alternatives of excision of this process were reviewed the patient and included but not limited to bleeding, infection, recurrence, numbness, pain, scarring the patient was to proceed. All questions answered. Consent signed. Office Procedures Excision Details: After appropriate positioning, patient underwent 1% lidocaine and Betadine prepped and a transverse by elliptical incision was made over the left lateral sebaceous cyst which was uneventfully excised. Specimen sent to pathology. Wounds irrigated, secured hemostasis, and closed using running subcuticular 3-0 Vicryl suture followed by Steri-Strips and sterile dressing. Patient tolerated procedure well. [id number]-Pwhutehl scalp/neck/hands/feet/genitalia 2.1cm-3cm Procedure code (CPT) selection complete Office Meds lidocaine 1 %-epinephrine 1:100,000 injection solution Performing Provider: Barney Marroquin MD Performing Location: [facility] [place] General Surgeons Administered by: Barney Marroquin MD on 04/03/24 10:19 Dose Route Admin Location Dispensed Lot Number Expiration Date [facility] Glass Block Installer 10 mL Infiltration 10 mL Assessment & Plan Assessment & Plan (1) Sebaceous cyst: Code(s): L72.3 - Sebaceous cyst Category: Surgical Plan: Patient has been given local instructions including avoiding strenuous activities,, may shower in 2 days, keep dressing over incision while at work, Motrin or Tylenol p.r.n., ice p.r.n.. Patient will see me as directed or p.r.n.. All questions answered Orders: Orders Surgical 04/02/24 L72.11 - Pilar cyst AMB Excision 04/02/24 L72.3 - Sebaceous cyst Medications: New lidocaine-epinephrine 1 %-1:100,000 10 mL Infiltration ONCE 30 mL 0RF L72.3 - Sebaceous cyst Coding Level of Care Code New Pt Level 5 (63529) Diagnoses Sebaceous cyst L72.3 CPT Codes Scalp/Neck/Hands/Feet/Genetalia - CPT: 87590-Plzmmwce scalp/neck/hands/feet/genitalia 2.1cm-3cm ([id number])
[2024-04-02 14:49] VITALS: BP 162/79; PULSE 78; BMI 26.5
== END 2024-04-02 15:18 | disposition home or self-care (01) ==
PROVIDERS: PCP Internal Medicine; Visit Provider Surgery
DX: L72.0 Epidermal cyst (principal)
CPT/HCPCS: 11422; 99204

== ENCOUNTER 2024-04-02 14:25 | Outpatient (REF) | payer OTHER, SELFPAY | END 2024-04-02 14:26 | disposition home or self-care (01) | LOC: HO.LNP 14:25 | PROVIDERS: PCP Internal Medicine; Visit Provider Surgery | DX: L72.11 Pilar cyst (principal) | CPT/HCPCS: 11422; 88304 ==

== ENCOUNTER 2024-04-22 14:32 | Outpatient (AMB) | payer OTHER, SELFPAY ==
--- NOTE | 2024-04-22 14:35 | A.OFFVIS_ITS ---
Intake Visit Reasons: s/p CYST POSTERIOR NECK REMOVAL Intake Note: Patient here s/p pilar cyst exc on Lt post scalp. Reports incision healing well. Patient c/o: no concerns subQ sutures healing. White small thread pointing out from scar. Denies oozing, pain. Registered Health Nurse Required: No Accompanied by: Self / Same As Patient Allergies No Known Allergies [No Known Allergies*] Allergy (Verified 04/22/24 14:35) HPI Comments Details: Patient was presents for evaluation. He has extruding a Vicryl suture from his left posterior scalp line incision. no other issues or complaints [facility] Medical History Gout COVID-19 vaccine series completed HTN (hypertension) Alcohol dependence in remission Encounter to establish care Nicotine dependence Anxiety Quadriceps tendon rupture Surgical History Hx of surgical procedure (04/02/24) History of right hip replacement History of left knee surgery Family History Other Substance use disorder Social History Household Members: Friend(s) and None Household Members Other:: parents/brother Housing: Apartment Are you a primary career development associate to a significant other at home: No Do you presently have visiting nurse or other home services: No Alcohol intake: current Alcohol intake frequency: a few times a month Alcohol type: beer Patient Tobacco Use Status: Current someday Tobacco user Tobacco use type: Cigarette Cigarettes Per Day: 5 Years Smoked: 20 e-Cigarette/Vaping Use: Never Used Second Hand Smoke Exposure: Yes service: No Current occupational status: employed 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 Extruding Vicryl suture was uneventfully removed. Bacitracin and dressing applied. Assessment & Plan Assessment & Plan (1) Postoperative stitch abscess: Code(s): T81.41XA - Infection following a procedure, superficial incisional surgical site, initial encounter Category: Surgical Plan Patient has been given local instructions and will follow-up p.r.n.. All questions answered Coding Level of Care Code Global (87427) Diagnoses Postoperative stitch abscess T81.41XA
== END 2024-04-22 14:44 | disposition home or self-care (01) ==
PROVIDERS: PCP Internal Medicine; Visit Provider Surgery
DX: T81.41XA Infection following a procedure, superficial incisional surgical site, initial encounter (principal)
CPT/HCPCS: 99024

== ENCOUNTER → 2024-04-22 14:32 | Outpatient (BNVA) | payer OTHER, SELFPAY | PROVIDERS: PCP Internal Medicine; Visit Provider Surgery ==

== ENCOUNTER 2025-06-02 16:23 | Outpatient (AMB) | payer BC, SELFPAY ==
[2025-06-02 16:24] VITALS: BP 148/92; PULSE 92; TEMP 37.1; O2SAT 98; BMI 25.6
--- NOTE | 2025-06-02 16:24 | AM.OFFWIN_ITS ---
Intake Vital Signs 06/02/25 16:24 Height 5 ft 10 in Weight 178 lb 4 oz BMI 25.6 BP 148/92 H Blood Pressure Location Lt brachial Position Sitting Pulse 92 Pulse Source Pulse Oximeter Temp 98.8 F Temp Source Oral Pulse Oximetry (%) 98 Oxygen Delivery Method Room Air Intake Visit Reasons: EP Lower abdominal cramping Intake Note: Patient present with lower abdominal pain time 2 days. 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 Reports bowel moveme nts with small/little Stools. Reports Gassy pains, pressure and abdominal distention. He does admit to passing Gas, but very minimal. Denies nausea, vomiting, fevers or chills. He did have some alcohol and cheeseburger over the weekend - he does drink every weekend. [facility] Medical History (Updated 06/02/25 @ 16:50 by Christina Iraheta NP) Generalized abdominal pain Gout COVID-19 vaccine series completed HTN (hypertension) Alcohol dependence in remission Encounter to establish care Nicotine dependence Anxiety Quadriceps tendon rupture Surgical History (Updated 04/22/24 @ 14:41 by Barney Marroquin MD) Hx of surgical procedure (04/02/24) History of right hip replacement History of left knee surgery Family History Other Substance use disorder Social History Household Members: Friend(s) and None Household Members Other:: parents/brother Housing: Apartment Are you a primary continuum of care manager to a significant other at home: No Do you presently have visiting nurse or other home services: No Alcohol intake: current Alcohol intake frequency: a few times a month Alcohol type: beer Patient Tobacco Use Status: Current someday Tobacco user Tobacco use type: Cigarette Cigarettes Per Day: 5 Years Smoked: 20 e-Cigarette/Vaping Use: Never Used Second Hand Smoke Exposure: Yes service: No Current occupational status: employed 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, 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 Current occupational exposures/hazards: No Cognitive needs: No Hearing needs: No Vision needs: No Review of Systems Const All systems reviewed & are unremarkable except as noted in HPI and below Physical Exam Vital Signs: Last Vital Signs Temp 98.8 F 06/02/25 16:24 Pulse 92 06/02/25 16:24 BP 148/92 H 06/02/25 16:24 Pulse Ox 98 06/02/25 16:24 Oxygen Delivery Method Room Air 06/02/25 16:24 BMI result Body Mass Index 25.6 Const General: no acute distress; No comfortable Orientation/consciousness: patient oriented x3 Resp Effort & Inspection: normal respiratory effort Cardio Heart sounds: S1 normal heart sound present and S2 normal heart sound present GI Inspection: Yes distended and Yes obesity Palpation (GI): Soft to palpation, not firm, Tenderness to palpation present (GI) (Generalized Tenderness) with rebound tenderness, no guarding, not rigid and No hepatosplenomegaly present Auscultation: Hypoactive bowel sounds present Rectal Exam - Male: Yes deferred Neuro General: patient oriented x3 Assessment & Plan Assessment & Plan (1) Generalized abdominal pain: Code(s): R10.84 - Generalized abdominal pain Plan: DDx's: Constipation vs Bowel Obstruction vs Appendicitis vs Colitis vs Gastritis Advised Emergency room visit for CT abdomen - states he will go tomorrow morning. Recommended prescription for Golyte for Bowel cleanse - Pt declined. Recommended OTC stool Laxatives Medications: New sennosides (Senokot) 17.2 mg (2 x 8.6 mg) PO BEDTIME 20 tabs 0RF R10.84 - Generalized abdominal pain Coding Level of Care Code Est Pt Level 4 (26884) Diagnoses Generalized abdominal pain R10.84 Time Spent (min) 20
== END 2025-06-02 16:50 | disposition home or self-care (01) ==
PROVIDERS: PCP Internal Medicine; Visit Provider Nurse Practitioner Family
DX: R10.84 Generalized abdominal pain (principal)

== ENCOUNTER 2025-07-08 16:55 | Outpatient (AMB) | payer BC, SELFPAY ==
[2025-07-08 16:57] VITALS: BP 136/88; PULSE 85; RESP 18; TEMP 36.2; O2SAT 97; BMI 25.7
--- NOTE | 2025-07-08 16:57 | A.OFFPC_ITS ---
Vital Signs 07/08/25 16:57 Height 5 ft 10 in Weight 179 lb BMI 25.7 BP 136/88 Blood Pressure Location Lt brachial Position Sitting Respiration 18 Pulse 85 Pulse Source Pulse Oximeter Temp 97.1 F Temp Source Temporal Artery Scan Pulse Oximetry (%) 97 Oxygen Delivery Method Room Air Intake Visit Reasons: annual exam Change Release Manager Required: No Accompanied by: Self / Same As Patient Allergies No Known Allergies (No Known Allergies*) Allergy (Verified 07/08/25 18:32) Medication List - Last Reconciled 07/08/25 by Sherman Phoenix MD colchicine 0.6 mg PO DAILY PRN lisinopril 2.5 mg PO DAILY 90 days Tobacco use date assessed: 07/08/25 Dental Screening Dental Screen Date: 07/08/25 Did you have a dental visit in the last 12 months?: Yes Did you have a dental problem in the last 6 months where you did not have access to dental care?: No Was dental information given to patient?: Patient has dentist HPI annual exam HPI0 Details Patient comes in today for his annual physical examination - he has not been back since his last visit/physical exam last year on 03/05/2024 Patient states that he currently feels okay but he was admitted at [facility] in [place] for a couple of days last month for diverticulitis Abdominal and pelvic CT done reportedly revealed (+) findings compatible with acute diverticulitis with microperforations with small amount of free fluid He was started on IV Zosyn but he did not wish to continue staying in the hospital and was eventually discharged home on 06/05/2025 on oral Augmentin x 12 more days Patient states that his abdominal symptoms have improved significantly and he currently no longer has any abdominal pain or diarrhea He denies any fever, headaches or dizziness Denies any chest pains, no shortness of breath No nausea/vomiting He denies any acute urinary symptoms He was referred for screening colonoscopy last year but patient states that he never did get scheduled and never had this done He also has no follow-up labs done recently although he states that a lot of blood tests were done when he was at the hospital at [facility] last month [facility] Medical History Diverticulitis of colon with perforation Pure hypercholesterolemia Essential hypertension Generalized abdominal pain Gout COVID-19 vaccine series completed HTN (hypertension) Alcohol dependence in remission Encounter to establish care Nicotine dependence Anxiety Quadriceps tendon rupture Surgical History (Updated 07/09/25 @ 05:48 by Sherman Phoenix MD) Hx of surgical procedure (04/02/24) History of right hip replacement History of left knee surgery Family History Other Substance use disorder Social History Household Members: Friend(s) and None Household Members Other:: parents/brother Housing: Apartment Are you a primary career development counselor to a significant other at home: No Do you presently have visiting nurse or other home services: No Alcohol intake: current Alcohol intake frequency: a few times a month Alcohol type: beer Patient Tobacco Use Status: Current someday Tobacco user Tobacco use type: Cigarette Cigarettes Per Day: 5 Years Smoked: 20 e-Cigarette/Vaping Use: Never Used Second Hand Smoke Exposure: Yes service: No Current occupational status: employed 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 1. Little interest or pleasure in doing things: not at all 2. Feeling down, depressed, or hopeless: not at all 3. Trouble falling or staying asleep, or sleeping too much: not at all 4. Feeling tired or having little energy: not at all 5. Poor appetite or overeating: not at all 6. Feeling bad about yourself - or that you are a failure or have let yourself or your family down: not at all 7. Trouble concentrating on things, such as reading the newspaper or watching television: not at all 8. Moving or speaking so slowly that other people could have noticed. Or the opposite - being so fidgety or restless that you have been moving around a lot more than usual: not at all 9. Thoughts that you would be better off or of hurting yourself in some way: not at all Total score: 0 Depression Screening Interpretation: Negative Depression Screening Done: Yes 04672 - PHQ-9 Billing: Yes Source: Developed by Drs. Conrad Whiteside, Elle Duffy, Genaro Mruphy and colleagues, with an educational darin from [employer]. Thrive Questionnaire Date Thrive assessed: 07/08/25 I am a: Patient What is your living situation today?: I have a steady place to live Within the past 12 months, did the food you bought not last and you didn't have the money to get more?: Never true Within the past 12 months, did you worry whether your food would run out before you got money to buy more?: Never true Do you have trouble paying for medicines?: No Do you have trouble getting transportation to medical appointments?: No Do you have trouble paying your heating and electricity bill?: No Do you have trouble taking care of your child, family member or friend?: No Do you have trouble with day-to-day activities such as bathing, preparing meals, shopping, managing finances, etc.?: No Are you currently unemployed and looking for a job?: No Are you interested in more education?: No Please select the resources that you would like help with: None Currently or been in a relationship where the following occur: No concerns reported THRIVE Score: 0 AUDIT C Alcohol Use Questionnaire (AUDIT-C) 1. How often do you have a drink containing alcohol?: 2-4 times a month 2. How many drinks containing alcohol do you have on a typical day when you are drinking?: 1 or 2 3. How often do you have six or more drinks on one occasion?: Monthly Total Score: 4 Score Reviewed/Action Taken: Yes KEITH-7 AMB Questionnaire KEITH-7 Date KEITH - 7 assessed: 07/08/25 Feeling nervous, anxious, or on edge: 0 = Not at all Not being able to stop or control worryin = Not at all Worrying too much about different things: 0 = Not at all Trouble relaxin = Not at all Being so restless that it is hard to sit still: 0 = Not at all Becoming easily annoyed or irritable: 0 = Not at all Feeling afraid as if something awful might happen: 0 = Not at all Total KEITH-7 score (0-4 normal; 5-9 mild; 10-14 moderate; 15-21 severe): 0 Source: Developed by Elle Nayak. Clive, Genaro Murphy and colleagues, with an educational darin from [employer]. Review of Systems Const Denies chills, Denies fatigue, Denies fever(s), Denies headache(s), Denies malaise and Denies weakness Eyes Denies blurry vision, Denies change in vision, Denies irritation and Denies itchy eyes ENT Denies dysphagia, Denies dizziness, Denies otalgia, Denies headache(s), Denies nasal congestion, Denies neck pain, Denies odynophagia and Denies sore throat Card Denies chest pain, Denies rapid heart rate, Denies irregular heart rhythm, Denies palpitations and Denies dyspnea Resp Denies chest congestion, Denies cough, Denies dyspnea and Denies wheezing GI Denies abdominal pain, Denies bloating, Denies constipation, Denies dysphagia, Denies heartburn, Denies diarrhea, Denies nausea, Denies odynophagia and Denies vomiting Denies hematuria, Denies difficulty urinating, Denies dysuria, Denies urinary frequency and Denies urinary urgency Musc Denies back pain, Denies arthralgias, Denies joint swelling, Denies muscle weakness and Denies neck pain Skin/Breast Denies change in pigmentation, Denies lesions, Denies rash and Denies unusual bruising Neuro Denies dizziness, Denies headache(s), Denies paresthesias and Denies weakness Endo Denies fatigue and Denies palpitations Aller/Immun Denies itchy eyes and Denies wheezing Physical exam (Primary Care) Vital Signs: Last Vital Signs Temp 97.1 F 07/08/25 16:57 Pulse 85 07/08/25 16:57 Resp 18 07/08/25 16:57 BP 136/88 07/08/25 16:57 Pulse Ox 97 07/08/25 16:57 Oxygen Delivery Method Room Air 07/08/25 16:57 BMI result Body Mass Index 25.7 Tobacco/Smoking Status: Tobacco use Status Tobacco use date assessed 07/08/25 07/08/25 17:04 Patient Tobacco Use Status Current someday Tobacco 07/08/25 17:04 Tobacco use type Cigarette 07/08/25 17:04 e-Cigarette/Vaping Use Never Used 07/08/25 17:04 PHQ-9: PHQ-9 Score PHQ-9: Total score 0 07/08/25 23:00 Depression Screening Interpretation: Negative Thrive Assessment: Date of Thrive Assessment Date Thrive assessed 07/08/25 07/08/25 17:04 Currently or been in a relationship where the following occur: No concerns reported Const General: no acute distress, alert and awake Orientation/consciousness: patient oriented x3 HENMT Head: Yes normocephalic and Yes atraumatic Ears: external ears normal, TM's normal bilaterally and EAC's normal General nose exam: No nasal discharge present Face and sinus: Yes normal facial exam and Yes sinuses nontender Teeth and gingiva: dentition normal Throat: Yes posterior oropharynx normal and Yes tonsils normal (no TP congestion) Eyes Eyelids: Yes eyelids normal Conjunctivae: conjunctivae normal Pupils: Equal, round and reactive pupils present EOM: EOMs intact bilaterally Neck Neck: Yes no lymphadenopathy and Yes supple Thyroid: Thyroid normal Resp Auscultation: clear to auscultation bilaterally, no rales and no wheezes Cardio Rate: regular rate Rhythm: regular rhythm Heart sounds: no murmurs GI Palpation (GI): Soft to palpation, nontender and No hepatosplenomegaly present Auscultation: normal bowel sounds General: Yes no CVA tenderness Back/Spine/Pelvis Back: no CVA tenderness Thoracic/Lumbar Spine: thoracic and lumbar spine normal to inspection Skin Lesions: no lesions Rashes: no rashes Neuro General: patient oriented x3, moves all extremities, no focal motor deficits and CN's II-XI intact bilaterally Cranial nerves: Yes Equal, round and reactive pupils present Cognition (Neuro): normal cognition Gait exam (Neuro): Normal gait present Extrem General: Yes no clubbing, cyanosis or edema Coding Level of Care Code Est Pt Prev Care 40-64y(94888) Diagnoses Annual physical exam Z00.00 Diverticulitis of colon with perforation K57.20 Splenomegaly R16.1 Splenic cyst D73.4 Essential hypertension I10 Pure hypercholesterolemia E78.00 Gout, unspecified cause, unspecified chronicity, unspecified site M10.9 Gout site: unspecified site Gout etiology: unspecified cause Chronicity: unspecified Vitamin D deficiency E55.9 Alcohol dependence in remission F10.21 Anxiety F41.9 Smoker F17.200 Overweight (BMI 25.0-29.9) E66.3 Colon cancer screening Z12.11 Additional Codes PHQ-9 - 57248 - PHQ-9 Billing: Yes ([id number]) Assessment & Plan Assessment & Plan (1) Annual physical exam: Code(s): Z00.00 - Encounter for general adult medical examination without abnormal findings Category: Medical Plan: Check labs Patient has never had a screening colonoscopy done and will again be referred for this (2) Diverticulitis of colon with perforation: Code(s): K57.20 - Diverticulitis of large intestine with perforation and abscess without bleeding Category: Medical Plan: Patient was hospitalized [facility] for a couple of days last month for this - diverticulitis resolved with antibiotic therapy Abdominal CT revealed extensive inflammatory changes in the central anterior pelvis involving the mid sigmoid colon and a segment of the right lower quadrant distal small bowel. A tiny focus of extraluminal gas in the midst of these inflammatory changes are seen, concerning for microperforation Will refer patient to GI for further evaluation - patient will need to undergo a colonoscopy for further evaluation (3) Splenomegaly: Code(s): R16.1 - Splenomegaly, not elsewhere classified Category: Medical Plan: This was noted incidentally on his abdominal and pelvic CT done at [facility] last month Will send him for some labs for further evaluation Will also send him for abdominal ultrasound for further evaluation of his splenomegaly (4) Splenic cyst: Code(s): D73.4 - Cyst of spleen Category: Medical Plan: This was also noted on his abdominal and pelvic CT done at [facility] last month (1.5 cm hypodense lesion) - is most likely a benign cyst We will send patient for abdominal ultrasound for further evaluation (5) Essential hypertension: Code(s): I10 - Essential (primary) hypertension Category: Medical Plan: Reinforced low-sodium diet - goal is systolic BP of 120 mm or less Will start patient on Lisinopril 2.5 mg QD Patient is reminded to continue monitoring his blood pressure regularly (6) Pure hypercholesterolemia: Code(s): E78.00 - Pure hypercholesterolemia, unspecified Category: Medical Plan: Reinforced low cholesterol diet Patient's cholesterol was last checked over 3 years ago in January 2022 - his LDL cholesterol at that time was borderline elevated at 131 mg/dL Will send patient for labs to recheck his fasting lipids KAY for follow-up (7) Gout: Code(s): M10.9 - Gout, unspecified Category: Medical Qualifiers: Gout site: unspecified site Gout etiology: unspecified cause Chronicity: unspecified Qualified Code(s): M10.9 - Gout, unspecified Plan: Reinforced low purine diet Patient states that he has not had any acute flare-ups of gout lately but would like to get a refill on his Colchicine for PRN use, in case he gets a flare up of his gout at any time - Rx refilled (8) Vitamin D deficiency: Code(s): E55.9 - Vitamin D deficiency, unspecified Category: Medical Plan: Patient states that he has not taken any vitamin-D supplements in a couple of years now Will recheck his vitamin-D level for follow-up (9) Alcohol dependence in remission: Comment: last alcohol 04/2022 Code(s): F10.21 - Alcohol dependence, in remission Category: Medical Plan: Patient states that he has not had any alcohol to drink in over 3 years now Is encouraged to continue working on maintaining his sobriety (10) Anxiety: Code(s): F41.9 - Anxiety disorder, unspecified Category: Medical Plan: Patient used to take Hydroxyzine PRN for his anxiety but states that he has not taken it in a while and does not need any Rx at this time (11) Smoker: Code(s): F17.200 - Nicotine dependence, unspecified, uncomplicated Category: Social Hx Plan: Patient is counseled again on complete smoking cessation (12) Overweight (BMI 25.0-29.9): Code(s): E66.3 - Overweight Category: Medical Plan: Reinforced diet/exercise as tolerated/lose weight (13) Colon cancer screening: Code(s): Z12.11 - Encounter for screening for malignant neoplasm of colon Category: Medical Plan: Will refer patient to GI for his screening colonoscopy Plan Follow up in 3 months Orders: Orders Lipid Panel 07/08/25 E78.00 - Pure hypercholesterolemia, unspecified, Z00.00 - Encounter for general adult medical examination without abnormal findings UA CC w/rflx Micro + Cult 07/08/25 R30.0 - Dysuria, Z00.00 - Encounter for general adult medical examination without abnormal findings Vitamin D 25-OH Total 07/08/25 E55.9 - Vitamin D deficiency, unspecified, Z00.00 - Encounter for general adult medical examination without abnormal findings Prostate Specific Antigen Scr 07/08/25 Z00.00 - Encounter for general adult medical examination without abnormal findings Lactate Dehydrogenase 07/08/25 R16.1 - Splenomegaly, not elsewhere classified Hepatitis B,C Profile 07/08/25 R16.1 - Splenomegaly, not elsewhere classified Emilie-Leo Virus Profile 07/08/25 R16.1 - Splenomegaly, not elsewhere classified US abdomen complete 07/08/25 D73.4 - Cyst of spleen, R16.1 - Splenomegaly, not elsewhere classified Complete Blood Count Auto Diff 07/08/25 D64.9 - Anemia, unspecified, Z00.00 - Encounter for general adult medical examination without abnormal findings Comprehensive [place]. Panel Fast 07/08/25 E78.00 - Pure hypercholesterolemia, unspecified, Z00.00 - Encounter for general adult medical examination without abnormal findings TSH reflex Free T4 07/08/25 E78.00 - Pure hypercholesterolemia, unspecified, Z00.00 - Encounter for general adult medical examination without abnormal findings Monotest 07/08/25 R16.1 - Splenomegaly, not elsewhere classified Referrals Gastroenterology Referral Z12.11 - Encounter for screening for malignant neoplasm of colon Medications: New lisinopril 2.5 mg PO DAILY 90 tabs 1RF 90 days Refilled colchicine 0.6 mg PO DAILY PRN 30 tabs 1RF gout M10.9 - Gout, unspecified
== END 2025-07-08 17:36 | disposition home or self-care (01) ==
LOC: HO.HMCH 16:56
PROVIDERS: PCP Internal Medicine; Visit Provider Internal Medicine
DX: Z00.00 Encounter for general adult medical examination without abnormal findings (principal); K57.20 Diverticulitis of large intestine with perforation and abscess without bleeding; F10.21 Alcohol dependence, in remission; R16.1 Splenomegaly, not elsewhere classified; D73.4 Cyst of spleen; I10 Essential (primary) hypertension; E78.00 Pure hypercholesterolemia, unspecified; M10.9 Gout, unspecified; E55.9 Vitamin D deficiency, unspecified; F41.9 Anxiety disorder, unspecified; F17.200 Nicotine dependence, unspecified, uncomplicated; E66.3 Overweight

== ENCOUNTER → 2025-07-08 16:55 | Outpatient (BNVA) | payer BC, SELFPAY | PROVIDERS: PCP Internal Medicine; Visit Provider Internal Medicine | DX: Z00.00 Encounter for general adult medical examination without abnormal findings (principal); K57.20 Diverticulitis of large intestine with perforation and abscess without bleeding; R16.1 Splenomegaly, not elsewhere classified; D73.4 Cyst of spleen; I10 Essential (primary) hypertension; E78.00 Pure hypercholesterolemia, unspecified; M10.9 Gout, unspecified; E55.9 Vitamin D deficiency, unspecified; F10.21 Alcohol dependence, in remission; F41.9 Anxiety disorder, unspecified; E66.3 Overweight; F17.210 Nicotine dependence, cigarettes, uncomplicated; Z68.25 Body mass index [BMI] 25.0-25.9, adult | CPT/HCPCS: 96127 ==

== ENCOUNTER 2025-08-21 12:54 | Outpatient (REF) | payer BC, SELFPAY ==
--- NOTE | ~2025-08-21 | US_ITS ---
EXAMINATION: US ABDOMEN LIMITED CLINICAL INFORMATION: Splenomegaly. COMPARISON: Correlated to noncontrast CT abdomen pelvis dated May 09, 2022. TECHNIQUE: Real-time ultrasound spleen using grayscale technique. FINDINGS: Spleen measures 14 cm. No gross solid or cystic lesion. US/US abdomen limited IMPRESSION: Splenomegaly. Electronically signed by: Triston Hogan MD 08/21/2025 01:39 PM EDT
== END 2025-08-21 12:55 | disposition home or self-care (01) ==
LOC: HO.HMGCX 12:54
PROVIDERS: PCP Internal Medicine; Visit Provider Internal Medicine
DX: R16.1 Splenomegaly, not elsewhere classified (principal); D73.4 Cyst of spleen
CPT/HCPCS: 76705

== ENCOUNTER → 2025-08-21 12:57 | Outpatient (BNV) | payer BC, SELFPAY | PROVIDERS: PCP Internal Medicine; Visit Provider Radiology Diagnostic Radiology | DX: R16.1 Splenomegaly, not elsewhere classified (principal) | CPT/HCPCS: 76705 ==